=== PATIENT | male | born 1950 | race Caucasian/White ===

== ENCOUNTER 2019-10-24 08:13 | Outpatient (CLI) | payer OTHER, SELFPAY ==
--- NOTE | 2019-10-24 07:45 | XRR_ITS ---
PROCEDURE INFORMATION: Exam: XR Abdomen, 1 View Exam date and time: 10/24/2019 8:33 AM Age: 69 years old Clinical indication: Condition or disease; Kidney or ureter condition; Calculus (stone) in kidney; Prior surgery; Surgery date: 6+ months; Surgery type: Prostate; Kidney stones; Patient HX: Follow up stones 6 months. HX of prostate cancer; Additional info: HX of renal stone TECHNIQUE: Imaging protocol: XR of the abdomen. Views: Frontal supine view of the abdomen. 1 View. COMPARISON: [place] XR KUB [id number] 04/18/2019 7:56 AM FINDINGS: Gastrointestinal tract: Unremarkable. No bowel dilation. Intraperitoneal space: Bilateral pelvic bowel surgical clips consistent with prior prostatectomy redemonstrated. Organs: Small bilateral renal caliceal calculi, somewhat more conspicuous than on the prior study likely due to better radiographic technique Bones/joints: Superior lateral right hip joint mild narrowing with subchondral sclerosis. Bilateral lower lumbar facet primary osteoarthritis. XR/XR KUB [id number] IMPRESSION: Bilateral renal calyceal lithiasis, stable.
== END 2019-10-24 08:14 | disposition home or self-care (01) ==
LOC: RAD 08:18
PROVIDERS: Family Provider Family Medicine; PCP Family Medicine; Visit Provider Urology
DX: Z87.442 Personal history of urinary calculi (principal); N20.0 Calculus of kidney
CPT/HCPCS: 74018; 81001

== ENCOUNTER 2020-10-23 08:02 | Outpatient (CLI) | payer MEDICARE, SELFPAY ==
--- NOTE | 2020-10-23 08:15 | XRR_ITS ---
PROCEDURE INFORMATION: Exam: XR Abdomen Exam date and time: 10/23/2020 8:15 AM Age: 70 years old Clinical indication: Condition or disease; Kidney or ureter condition; Calculus (stone) in kidney; Prior surgery; Surgery type: Lithotripsy, prostate; Additional info: Stones, luis m cardenas 10/23/20 @ 8:15 am appt to follow TECHNIQUE: Imaging protocol: XR of the abdomen. Views: Frontal supine view of the abdomen. 1 View. COMPARISON: [place] XR KUB [id number] 10/24/2019 8:25 AM FINDINGS: Tubes, catheters and devices: Surgical clips are seen projecting over the pelvis. Gastrointestinal tract: Normal. No bowel dilation. Organs: Tiny densities are again seen projecting over the kidney shadows, likely representing non-obstructing stones. Evaluation is limited due to overlying bowel. Bones/joints: Unremarkable. XR/XR KUB [id number] IMPRESSION: Bilateral nonobstructive kidney stones.
== END 2020-10-23 08:03 | disposition home or self-care (01) ==
LOC: RAD 08:06
PROVIDERS: Family Provider Family Medicine; PCP Family Medicine; Visit Provider Urology
DX: N20.0 Calculus of kidney (principal)
CPT/HCPCS: 74018; 81003

== ENCOUNTER → 2020-11-27 09:45 | Outpatient (BNVA) | payer MEDICARE, SELFPAY | PROVIDERS: Family Provider Family Medicine; PCP Family Medicine; Visit Provider Nurse Practitioner Family | DX: Z20.822 Contact with and (suspected) exposure to COVID-19 (principal) | CPT/HCPCS: 87635 ==

== ENCOUNTER → 2021-02-28 09:40 | Outpatient (BNVA) | payer MEDICARE, SELFPAY | PROVIDERS: Family Provider Family Medicine; PCP Family Medicine; Visit Provider Nurse Practitioner Family | DX: Z20.822 Contact with and (suspected) exposure to COVID-19 (principal) | CPT/HCPCS: 87400; 87635 ==

== ENCOUNTER → 2021-04-22 00:01 | Outpatient (BNVA) | payer MEDICARE, SELFPAY | PROVIDERS: Family Provider Family Medicine; PCP Family Medicine; Visit Provider Nurse Practitioner Family | DX: J06.9 Acute upper respiratory infection, unspecified (principal) | CPT/HCPCS: 87635 ==

== ENCOUNTER → 2021-05-10 00:01 | Outpatient (BNVA) | payer MEDICARE, SELFPAY | PROVIDERS: Family Provider Family Medicine; PCP Family Medicine; Visit Provider Nurse Practitioner Family | DX: Z20.822 Contact with and (suspected) exposure to COVID-19 (principal) | CPT/HCPCS: 87635 ==

== ENCOUNTER 2021-05-17 13:17 | Outpatient (CLI) | payer MEDICARE, SELFPAY ==
[2021-05-17 13:35] VITALS: BP 166/83; PULSE 69; RESP 18; TEMP 36.2; O2SAT 95; BMI 36.3
[2021-05-17 14:04] VITALS: BP 143/81; PULSE 63; RESP 16; TEMP 36.6; O2SAT 98
[2021-05-17 15:05] VITALS: BP 151/85; PULSE 64; RESP 18; TEMP 36.6; O2SAT 98
== END 2021-05-17 13:18 | disposition home or self-care (01) ==
LOC: OPS 13:24
PROVIDERS: Family Provider Family Medicine; PCP Family Medicine; Visit Provider Family Medicine
DX: U07.1 COVID-19 (principal)
CPT/HCPCS: 96365

== ENCOUNTER → 2021-09-04 08:56 | Outpatient (BNVA) | payer MEDICARE, SELFPAY | PROVIDERS: Family Provider Family Medicine; PCP Family Medicine; Visit Provider Podiatrist Foot & Ankle Surgery | DX: M20.41 Other hammer toe(s) (acquired), right foot (principal); M20.42 Other hammer toe(s) (acquired), left foot; M21.40 Flat foot [pes planus] (acquired), unspecified foot; M19.072 Primary osteoarthritis, left ankle and foot; M19.071 Primary osteoarthritis, right ankle and foot; L60.8 Other nail disorders; Z98.890 Other specified postprocedural states; Z87.891 Personal history of nicotine dependence | CPT/HCPCS: 73630; 99204 ==

== ENCOUNTER 2021-10-24 08:45 | Outpatient (CLI) | payer MEDICARE, SELFPAY ==
--- NOTE | 2021-10-24 07:30 | XR_ITS ---
WS: [id number] XR KUB [id number] REASON FOR EXAM: Bilateral Renal Stones FINDINGS: There are multiple small bilateral renal calculi which appear unchanged compared to 10/23/2020. No ureteral calculi or bladder calculi are identified. Postsurgical pelvis with bilateral surgical clips. No other significant pelvic or abdominal abnormality. XR/XR KUB [id number] IMPRESSION: Stable intrarenal calculi.
== END 2021-10-24 08:46 | disposition home or self-care (01) ==
LOC: RAD 08:47
PROVIDERS: Family Provider Family Medicine; PCP Family Medicine; Visit Provider Urology
DX: N20.0 Calculus of kidney (principal)
CPT/HCPCS: 74018; 81003; 99213

== ENCOUNTER 2021-12-10 08:46 | Outpatient (CLI) | payer MEDICARE, SELFPAY ==
--- NOTE | 2021-12-10 08:56 | XR_ITS ---
WS: [id number] Exam: XR chest 2V* [id number] Date/Time of Exam: 12/10/2021 8:58 AM Reason For Exam: cough Comparison 05/13/2016. Findings: The lungs are clear and fully expanded. Costophrenic angles are sharp. No infiltrates. Bronchovascula r relief appears normal. Cardiac silhouette is unremarkable. Bony elements are intact. XR/XR chest 2V* [id number] IMPRESSION: Unremarkable chest radiograph.
== END 2021-12-10 08:47 | disposition home or self-care (01) ==
LOC: RAD 08:48
PROVIDERS: Family Provider Family Medicine; PCP Family Medicine; Visit Provider Family Medicine
DX: R05.9 Cough, unspecified (principal)
CPT/HCPCS: 71046

== ENCOUNTER 2022-01-24 08:25 | Outpatient (CLI) | payer MEDICARE, SELFPAY ==
--- NOTE | 2022-01-24 08:30 | CT_ITS ---
WS: [id number] CT PARANASAL SINUSES HISTORY: chronic sinus headaches TECHNIQUE: Contiguous 2.5 mm axial images obtained through the sinuses. Images are reconstructed in s agittal and coronal planes. All CT scans at [facility] use at least one of these dose optimiz ation techniques: automated exposure control; mA and/or kV adjustment per patient size (includes targ eted exams where dose is matched to clinical indication); or iterative reconstruction. DLP: 407.28 mGy.cm COMPARISON: None available. Frontal sinuses: Normal. Sphenoid sinus: Normal. Ethmoid sinuses: Normal. Maxillary sinus: No air-fluid levels or significant mucoperiosteal thickening. Incomplete septum to t he sinuses. No associated obstruction or mucoperiosteal thickening. Ostiomeatal unit: Patent. Very slight deviation of the nasal septum to the RIGHT with very minimal bony spurring. No soft tissu e abnormalities are identified. Visualized orbits and globes are negative. CT/CT sinus wo con* [id number] IMPRESSION: 1. No significant paranasal sinus disease. No air-fluid levels or mucoperioste al thickening. 2. Patent ostiomeatal units.
== END 2022-01-24 08:26 | disposition home or self-care (01) ==
LOC: RAD 08:27
PROVIDERS: PCP Family Medicine; Visit Provider Family Medicine
DX: J32.9 Chronic sinusitis, unspecified (principal)
CPT/HCPCS: 70486; 80053; 80061; 85025

== ENCOUNTER → 2022-12-04 08:44 | Outpatient (BNVA) | payer MEDICARE, SELFPAY | PROVIDERS: PCP Family Medicine; Visit Provider Family Medicine | DX: Z00.00 Encounter for general adult medical examination without abnormal findings (principal); I10 Essential (primary) hypertension | CPT/HCPCS: 80053; 80061; 85025 ==

== ENCOUNTER → 2022-12-16 15:44 | Outpatient (BNVA) | payer MEDICARE, SELFPAY | PROVIDERS: PCP Family Medicine; Visit Provider Dermatology | DX: L30.9 Dermatitis, unspecified (principal); L82.1 Other seborrheic keratosis; L57.0 Actinic keratosis; D23.72 Other benign neoplasm of skin of left lower limb, including hip; I87.2 Venous insufficiency (chronic) (peripheral) | CPT/HCPCS: 17000; 17003; 99214 ==

== ENCOUNTER 2023-03-13 07:20 | Outpatient (RCR) | payer MEDICARE, SELFPAY | END 2023-03-26 23:59 | disposition home or self-care (01) | LOC: SPT 07:20 | PROVIDERS: PCP Family Medicine; Visit Provider Orthopaedic Surgery | DX: M17.11 Unilateral primary osteoarthritis, right knee (principal) | CPT/HCPCS: 97110; 97116; 97161 ==

== ENCOUNTER 2023-03-27 06:00 | Outpatient (RCR) | payer MEDICARE, SELFPAY | END 2023-04-26 23:59 | disposition home or self-care (01) | LOC: SPT 06:00 | PROVIDERS: PCP Family Medicine; Visit Provider Orthopaedic Surgery | DX: M17.11 Unilateral primary osteoarthritis, right knee (principal) | CPT/HCPCS: 97110; 97530 ==

== ENCOUNTER 2023-04-27 06:00 | Outpatient (RCR) | payer MEDICARE, SELFPAY | END 2023-05-14 23:59 | disposition home or self-care (01) | LOC: SPT 06:00 | PROVIDERS: PCP Family Medicine; Visit Provider Orthopaedic Surgery | DX: M17.11 Unilateral primary osteoarthritis, right knee (principal) | CPT/HCPCS: 97110; 97530 ==

== ENCOUNTER → 2023-11-02 14:05 | Outpatient (BNVA) | payer MEDICARE, SELFPAY | PROVIDERS: PCP Family Medicine; Visit Provider Family Medicine | DX: I47.20 Ventricular tachycardia, unspecified (principal) | CPT/HCPCS: 80048; 85025 ==

== ENCOUNTER → 2024-01-13 08:22 | Outpatient (BNVA) | payer MEDICARE, SELFPAY | PROVIDERS: PCP Family Medicine; Visit Provider Nurse Practitioner Family | DX: D48.5 Neoplasm of uncertain behavior of skin (principal); L57.0 Actinic keratosis; L30.4 Erythema intertrigo; L30.9 Dermatitis, unspecified; B07.8 Other viral warts; L82.1 Other seborrheic keratosis; D23.72 Other benign neoplasm of skin of left lower limb, including hip; I87.2 Venous insufficiency (chronic) (peripheral); L73.8 Other specified follicular disorders; D69.2 Other nonthrombocytopenic purpura | CPT/HCPCS: 11102; 17000; 17110; 99214 ==

== ENCOUNTER → 2024-01-27 09:25 | Outpatient (BNVA) | payer MEDICARE, SELFPAY | PROVIDERS: PCP Family Medicine; Visit Provider Family Medicine | DX: I10 Essential (primary) hypertension (principal) | CPT/HCPCS: 80048 ==

== ENCOUNTER → 2024-04-28 10:06 | Outpatient (BNVA) | payer MEDICARE, SELFPAY | PROVIDERS: PCP Family Medicine; Visit Provider Nurse Practitioner Family | DX: L30.4 Erythema intertrigo (principal); L72.0 Epidermal cyst; L82.1 Other seborrheic keratosis; L81.4 Other melanin hyperpigmentation; Z08 Encounter for follow-up examination after completed treatment for malignant neoplasm | CPT/HCPCS: 99213 ==

== ENCOUNTER 2024-06-27 08:16 | Outpatient (RCR) | payer MEDICARE, SELFPAY | END 2024-07-25 23:59 | disposition home or self-care (01) | LOC: SPT 08:16 | PROVIDERS: Visit Provider Orthopaedic Surgery | DX: M17.12 Unilateral primary osteoarthritis, left knee (principal) | CPT/HCPCS: 97110; 97161 ==

== ENCOUNTER 2024-07-26 05:00 | Outpatient (RCR) | payer MEDICARE, SELFPAY | END 2024-08-24 23:59 | disposition home or self-care (01) | LOC: SPT 05:00 | PROVIDERS: Visit Provider Orthopaedic Surgery | DX: M17.12 Unilateral primary osteoarthritis, left knee (principal) | CPT/HCPCS: 97110 ==

== ENCOUNTER → 2024-08-15 15:34 | Outpatient (BNVA) | payer MEDICARE, SELFPAY | PROVIDERS: Visit Provider Nurse Practitioner Family | DX: L30.4 Erythema intertrigo (principal); L72.0 Epidermal cyst; L82.1 Other seborrheic keratosis; L81.4 Other melanin hyperpigmentation; Z08 Encounter for follow-up examination after completed treatment for malignant neoplasm; Z86.006 Personal history of melanoma in-situ; D48.5 Neoplasm of uncertain behavior of skin | CPT/HCPCS: 11102; 99213 ==

== ENCOUNTER 2024-08-25 06:30 | Outpatient (RCR) | payer MEDICARE, SELFPAY | END 2024-09-24 23:59 | disposition home or self-care (01) | LOC: SPT 06:30 | PROVIDERS: PCP Family Medicine; Visit Provider Orthopaedic Surgery | DX: M17.12 Unilateral primary osteoarthritis, left knee (principal) | CPT/HCPCS: 97110 ==

== ENCOUNTER → 2024-08-29 09:49 | Outpatient (BNVA) | payer MEDICARE, SELFPAY | PROVIDERS: PCP Family Medicine; Visit Provider Family Medicine | DX: J32.9 Chronic sinusitis, unspecified (principal); N20.0 Calculus of kidney; N18.9 Chronic kidney disease, unspecified | CPT/HCPCS: 80048; 85025 ==

== ENCOUNTER → 2024-09-26 09:51 | Outpatient (BNVA) | payer MEDICARE, SELFPAY | PROVIDERS: PCP Family Medicine; Visit Provider Family Medicine | DX: I10 Essential (primary) hypertension (principal); R60.9 Edema, unspecified | CPT/HCPCS: 80048; 83880 ==

== ENCOUNTER 2024-12-13 08:31 | Emergency (ER) | payer MEDICARE, SELFPAY ==
--- OUTSIDE RECORDS SUMMARY | 2024-12-09 10:25 | XMS_ITS | Encounter Summary ---
Author Organization [facility] Address [address] [place] [address] Care Team Providers Care Comber Fixer Name Role Phone Unavailable Primary Care Provider Unavailabl e Encounter Details Date Type Department Care Team (Latest Contact Info) Description 12/09/2024 10:25 AM CDT Ancillary Procedure [facility] [address] [place] [address] Choco Negro DO [address] [place] [address] Arthritis of right ankle Social History Tobacco Use Types Packs/Day Years Used Date Smoking Tobacco: Former Cigarettes 0.5 20 1 983 - 2002 Smokeless Tobacco: Never Comments:Quit smoking: Quit smoking in 1995 Alcohol Use Standard Drinks/Week Comments Yes 0 (1 standard drink = 0.6 oz pur e alcohol) rarely Sex and Gender Information Value Date Recorded Sex Assigned at Not on file Legal Sex Male 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 Gender Identity Not on file Sexual Orientation Not on file documented as of this encounter Plan of Treatment Upcoming Encounters Date Type Department Care Team (Late st Contact Info) Description 12/19/2024 2:00 PM CDT Procedure visit [facility] [address] [place] [address] Choco Negro DO [address] [place] [address] 02/08/2025 10:00 AM CDT Chart Note [facility] Former Machine 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 [facility] [phone] [place] [phone] 02/08/2025 10:30 AM CDT Office Visit [facility] [address] [place] [address] Rodríguez Piersonrasheed Ayesha Leo, OD [address] [place] [address] 06/21/2025 10:00 AM HOGSHEAD PACKER Office Visit [facility] - Orthopedic [facility] [address] [place] [address] Sonal Fontana, BOAT GARNISHER [address] [place] [address] documented as of this encounter Procedures Procedure Name Priority Date/Time Associated Diagnosis Comments XR ANKLE 3+ VW RIGHT Routine 12/09/2024 10:27 AM CDT Arthritis of right ankle documented in this encounter Results * XR ANKLE 3+ VW RIGHT (12/09/2024 10:27 AM CDT) Anatomical Region Laterality Modality Ankle / Foot Computed Radiogr aphy Narrative 12/12/2024 1:43 PM CDT X-ray images of the right ankle obtained and independently interpreted by me significant for severe degenerative changes about the tibiotalar joint osteopenia is present diffusely, subchondral cystic changes noted throughout the talus as well as the distal tibia, prominent soft tissue swelling, no acute fractures. us Choco Negro DO DIAGNOSTIC IMAGING ORD ERABLES Final Result documented in this encounter Visit Diagnoses Diagnosis Arthritis of right ankle Unspecified arthropathy, ankle and foot Arthritis of right ankle- Primary Unspecified arthropathy, ankle and foot documented in this encounter
--- OUTSIDE RECORDS SUMMARY | 2024-12-09 10:30 | XMS_ITS | Encounter Summary ---
Author Organization [facility] Address [address] [place] [address] Care Team Providers Care Acid Polymerization Operator Name Role Phone Unavailable Primary Care Provider Unavailabl e Reason for Referral * Eval and Treat (Routine) - Open Specialty Diagnoses / Procedures Referred By Ese jackman Referred To Contact Physical Therapy Diagnoses Lymphedema of both lower extremities Lymphedema of lower extremity, unspecified laterality Procedures MA OFFICE/OUTPATIENT ESTABLISHED MOD MDM 30 MIN MA OFFICE/OUTPATIENT NEW MODERATE MDM 45 MINUTES Choco Negro DO [address] [place] [address] Phone: tel: fax: [facility] [address] [place] [address] Phone: tel: fax: Referral ID Status Reason Start Date Expiration Date Visits Re quested Visits Authorized [id number] Open 12/09/2024 12/10/2025 15 15 Reason for Visit * Reason Comments Establish Care Rt ankle * Eval and Treat (Routine) - Closed Specialty Diagnoses / Procedures Referred By Ese jackman Referred To Contact Orthopedic Surgery Diagnoses Arthritis of right ankle Procedures MA OFFICE/OUTPATIENT ESTABLISHED MOD MDM 30 MIN MA OFFICE/OUTPATIENT NEW MODERATE MDM 45 MINUTES Sonal Fontana, IRRIGATION EQUIPMENT REMOVER [address] [place] [address] Phone: tel: fax: Grzegorz Whatley MD [address] [place] [address] Phone: tel: fax: Referral ID Status Reason Start Date Expiration Date Visits Re quested Visits Authorized [id number] Closed 11/15/2024 11/15/2025 1 1 Encounter Details Date Type Department Care Team (Late st Contact Info) Description 12/09/2024 10:30 AM CDT Office Visit [facility] Orthopedics - Orthopedic [address] [place] [address] Choco Negro DO 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 Gender Identity Not on file Sexual Orientation Not on file documented as of this encounter Last Filed Vital Signs Vital Sign Reading Time Taken Comments Blood Pressure 124/78 12/09/2024 10:33 AM CDT Pulse - - Temperature - - Respiratory Rate - - Oxygen Saturation - - Inhaled Oxygen Concentration - - Weight 121.1 kg (267 lb) 12/09/2024 10:33 AM CDT Height 182.9 cm (6') 12/09/2024 10:33 AM CDT Body Mass Index 36.21 12/09/2024 10:33 AM CDT documented in this encounter Progress Notes * Choco Negro, - 12/09/2024 10:33 AM CDT [address] [address] PATIENT NAME: Jose Angel Ceja CSN: [id number] : 1950 PROVIDER: Choco Negro DO PCP: No primary care provider on file. I have reviewed in detail in the patient's electronic medical record this date the past medical history, present medications, allergies, past surgical history, family history and social history. CHIEF COMPLAINT: Right ankle pain HISTORY PRESENT ILLNESS: Jose Angel Ceja is a 74 y.o. male who presents with a chief complaint of right ankle pain. He states the symptoms have been worsening over the past several years. He has had pain for roughly 10 years on relatively frequent basis. He does have a remote history of right ankle fracture which was treated nonsurgically. Has a history of bilateral TKA and states that his knees were present. He states that his symptoms do wax and wane in intensity and severity. He has been on Tylenol as well as topicals for symptoms. He has a significant cardiac history with paroxysmal A-fib, HFpEF, PND, and has recently had increased shortness of breath. Social History Tobacco Use Smoking Status Former Current packs/day: 0.00 Average packs/day: 0.5 packs/day for 20.0 years (10.0 ttl pk-yrs) Types: Cigarettes Start date: 1982 Quit date: 2002 Years since quittin.6 Smokeless Tobacco Never Tobacco Comments Quit smoking: Quit smoking in 1995 Body mass index is 36.21 kg/m??. No results found for: HGBA1C , [id number] ROS: Negative except as stated above. PHYSICAL EXAMINATION: Height: Ht Readings from Last 1 Encounters: 12/09/24 6' (1.829 m) Weight: Weight: 121.1 kg (267 lb) (12/09/24 1033) BMI: Body mass index is 36.21 kg/m??. GENERAL: Well nourished, well developed male no acute distress. PSYCH: appropriate mood and affect. SKIN: Skin color, texture, turgor normal. No rashes or lesions CARDIOVASCULAR: Pulses: strong and equal bilaterally; Circulation: warm, well perfused. NEURO: CN2-12 grossly intact bilaterally MUSCULOSKELETAL EXAM: Exam limited to right ankle: Inspection: Moderate swelling of the bilateral lower extremity with intact skin, 2+ pitting to the midshin bilaterally. No erythema or other ecchymosis noted. Range of Motion: Active Plantar flexion 30 degrees, dorsiflexion to 5 degrees, inversion 15 degrees, eversion to 5 degrees Palpation: Mild tenderness to palpation over the tibiotalar joint, no significant tenderness overlying the ATFL, CFL, Achilles tendon, peroneal tendons Strength: Plantar flexion 4/5, dorsiflexion 4/5, inversion 4/5, eversion 4/5 Special Testing: Anterior drawer positive, talar tilt equivocal, squeeze test negative Neurovascular: Neurovascularly intact RADIOGRAPHIC FINDINGS: X-ray images of the right ankle obtained at independently interpreted by me significant for severe degenerative changes about the tibiotalar joint osteopenia is present diffusely, subchondral cystic changes noted throughout the talus as well as the distal tibia, prominent soft tissue swelling, no acute fractures. ASSESSMENT: Encounter Diagnoses Name Primary? Arthritis of right ankle Yes Lymphedema of both lower extremities Lymphedema of lower extremity, unspecified laterality PLAN: Severe osteoarthritis of the right ankle, suspected the patient had previously undiagnosed bimalleolar fracture at some point. We did discuss starting with injection therapy under ultrasound guidance, given the patient's profound lymphedema referral was placed lymphedema clinic. Given patient's cardiac history recommend patient to avoid all NSAIDs, topicals may be used. Patient was outfitted witha lace up ankle brace today. May consider specialty bracing if prefab braces are inadequate. The patient voices understanding, all questions were answered prior to leaving the clinic today. Orders Placed This Encounter XR ANKLE 3+ VW RIGHT Referral to Lymphedema Clinic - [facility] Outpatient [facility] empagliflozin (JARDIANCE) 10 mg tablet bumetanide (BUMEX) 1 mg tablet Contact clinic if symptoms worsen or fail to improve as expected. See orders for this visit as documented in the electronic medical record. This progress note is meant as a communication from physician to physician, and there may be unfamiliar terminology if you are a patient reading this note. If you find that is the case or you disagree with anything in this note, kindly wait until your next appointment to discuss with me. However, understand that changes to the note will only be made if information is factually an error. Also, clinical information cannot be removed from the medical records in order to withhold information from insurance companies. Please understand that I am not at liberty to discuss progress notes written by other providers. Portions of this document were created through the use of [employer] automation design engineer software. Effort has been made to ensure accuracy of the sustainability officer. Any obvious errors or omissions should be clarified with the author of the document. The medical record reflects the History of Present Illness as obtained by myself in discussion withthe patient. Choco Negro DO documented in this encounter Miscellaneous Notes * Patient Instructions - Choco Negro DO - 11/25/2024 2:28 PM CDT Images from the original note were not included. It was a pleasure seeing you in the clinic today. If you have any questions when you get home do not hesitate to call us at the numbers below. If you feel the need to call us and we are unable to answer the phone, please leave a voicemail with your name, and phone number and we will call you back as soon as possible. IF we have placed a referral for you during this visit, please allow 5 business days for your referrals to pass through insurance and processing. If you have questions about your referral please contact the respective numbers below to follow up on the next steps. [facility] Central - Test Scheduling(MRI, CT, etc.) [facility] Referral Team-(PT, OT, etc.) [facility] Neurology- (EMG) [facility] Pain Management(Spine) [facility] Financial Assistance [phone] Again, it was a pleasure visiting with you today. We look forward to seeing you again in the future. Best regards, DO Kumar Irving PA Libby Bales, MA [facility] Orthopedics [phone] Sports Medicine [place] Ankle Sprain: Rehab Exercises Introduction Here are some examples of exercises for you to try. The exercises may be suggested for a condition or for rehabilitation. Start each exercise slowly. Ease off the exercises if you start to have pain. You will be told when to start these exercises and which ones will work best for you. How to do the exercises Ankle alphabet Sit in a chair with your feet flat on the floor. (You can also do this exercise lying on your back with your affected leg propped up on a pillow). Lift the heel of your affected foot off the floor, and slowly trace the letters of the alphabet. It's a good idea to repeat these steps with your other foot. Resisted ankle inversion Sit on the floor with your good leg crossed over your other leg. Hold both ends of an exercise band and loop the band around the inside of your affected foot. Then press your other foot against the band. Keeping your legs crossed, slowly push your affected foot against the band so that foot moves away from your other foot. Then slowly relax. Repeat 8 to 12 times. Resisted ankle eversion Sit on the floor with your legs straight. Hold both ends of an exercise band and loop the band around the outside of your affected foot. Thenpress your other foot against the band. Keeping your leg straight, slowly push your affected foot outward against the band and away from your other foot without letting your leg rotate. Then slowly relax. Repeat 8 to 12 times. Resisted ankle dorsiflexion Tie the ends of an exercise band together to form a loop. Attach one end of the loop to a secure object or shut a door on it to hold it in place. (Or you can have someone hold one end of the loop to provide resistance.) While sitting on the floor or in a chair, loop the other end of the band over the top of your affected foot. Keeping your knee and leg straight, slowly flex your foot to pull back on the exercise band, and then slowly relax. Repeat 8 to 12 times. documented in this encounter Plan of Treatment Upcoming Encounters Date Type Department Care Team (Late st Contact Info) Description 12/19/2024 2:00 PM CDT Procedure visit [facility] Orthopedics - Orthopedic [facility] [address] [place] [address] Choco Negro DO [address] [place] [phone] 02/08/2025 10:00 AM CDT Chart Note [facility] Web Services Developer Optometry [facility] [address] [place] [phone] 02/08/2025 10:30 AM CDT Office Visit [facility] Optometry [facility] [address] [place] [address] Ayesha Reyez, OD [address] [place] [address] 06/21/2025 10:00 AM COUNTERINTELLIGENCE ANALYST Office Visit [facility] Orthopedics - Orthopedic [facility] [address] [address] Sonal Fontana, IRRIGATION EQUIPMENT REMOVER [address] [phone] Scheduled Referrals Name Type Priority Associated Diagnoses Orde r Schedule AMB REFERRAL TO LYMPHEDEMA CLINIC Outpatient Referral Routine Lymphedema of both lower extremities Lymphedema of lower extremity, unspecified laterality Ordered: 12/09/2024 documented as of this encounter Results * XR ANKLE 3+ [...] encounter Visit Diagnoses Diagnosis Arthritis of right ankle- Primary Unspecified arthropathy, ankle and foot Lymphedema of both lower extremities Lymphedema of lower extremity, unspecified laterality Arthritis of right ankle Unspecified arthropathy, ankle and foot Arthritis of right ankle- Primary Unspecified arthropathy, ankle and foot documented in this encounter
[2024-12-13] VITALS (13 sets, daily range): BP systolic 120–150; BP diastolic 66–80; PULSE 54–180; RESP 14–21; TEMP 36.7; O2SAT 92–98
--- OUTSIDE RECORDS SUMMARY | 2024-12-13 08:37 | XMS_ITS | Clinical Summary ---
Author Organization [facility] Address [address] [facility] [place] [address] Care Team Providers Care Archery Instructor Name Role Phone Unavailable Primary Care Provider Unavailabl e Allergies Active Allergy Reactions Criticality Noted Date Comments Williams Inhibitors Cough Low 11/12/2010 Codeine Phosphate Headache Low 11/12/2010 Medications amLODIPine (NORVASC) 10 mg Oral tablet Take 10 mg by mouth daily. Active potassium chloride SR (K-DUR) 20 mEq Oral tablet Take 20 mEq by mouth daily. Active losartan (COZAAR) 100 mg Oral tablet Take 100 mg by mouth daily. Active magnesium oxide (MAG-OX) 400 mg Oral tablet Take 400 mg by mouth 2 times daily. Active multivitamin (DAILY-DOROTA) Oral tablet Take 1 Tab by mouth daily. Active GLUCOSAM & CHONDROIT-MV & MIN3 (GLUCOSAMINE &YUNGTETYN-WI-ZQ N3 ORAL) Take by mouth daily. Active cetirizine (ZYRTEC) 10 mg Oral tablet Take 10 mg by mouth daily. Active metoprolol succinate ER 24 hour (TOPROL-XL) 25 mg Oral tablet Take 1 Tab by mouth daily. 90 Tab 3 08/05/2011 Active furosemide (LASIX) 40 mg tablet Take 40 mg by mouth daily. Active aspirin (ECOTRIN EC) 81 mg Tablet, Delayed Release (E.C.) Take 81 mg by mouth daily. Active Active Problems Problem Noted Date Diagnosed Date A-fib 11/14/2010 HTN (hypertension) 11/14/2010 Sleep apnea 11/14/2010 Immunizations Immunization Administration Dates Next Due (TDVAX)(7 YRS UP) TETANUS AN D DIPHTHERIA TOXOIDS, ADSORBED (2 LF OF TETANUS TOXOID AND 2 LF OF DIPHTHERIA TOXOID), 0.5ML (PF), IM 01/12/2007 Social History Tobacco Use Types Packs/Day Years Used Date Smoking Tobacco: Former Cigarettes Smokeless Tobacco: Never Comments:Quit smoking in 199 6 Alcohol Use Standard Drinks/Week Comments Not Asked 0 (1 standard drink = 0.6 oz pur e alcohol) Sex and Gender Information Value Date Recorded Sex Assigned at Not on file Legal Sex Male 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 Gender Identity Not on file Sexual Orientation Not on file Last Filed Vital Signs Vital Sign Reading Time Taken Comments Blood Pressure 164/94 01/19/2019 10:43 AM CDT Pulse 67 01/19/2019 10:43 AM CDT Temperature - - Respiratory Rate - - Oxygen Saturation - - Inhaled Oxygen Concentration - - Weight 127 kg (280 lb) 01/19/2019 10:43 AM CDT Height 185.4 cm (6' 1 ) 01/19/2019 10:43 AM CDT Body Mass Index 36.94 01/19/2019 10:43 AM CDT Plan of Treatment Health Maintenance Due Date Last Done Comments COLORECTAL SCREENING 1996 Colorectal Cancer Screening 1996 FIT-DNA Q 3 years 1996 FIT/FOBT Q 1 year 1996 Flex Sig/CT Colonography Q 5 years 1996 PNEUMOCOCCAL VACCINE 50+ YEARS (1 of 1 - PCV) 05/17/19 02 ZOSTER VACCINE (1 of 2) 2001 DTAP/TDAP/TD VACCINES (1 - Tdap) 01/13/2007 01/13/20 07 INFLUENZA VACCINE (#1) 2024 RSV VACCINE (60+ or ) (1 - 1-dose 75+ series) [address] [place] [id number]
--- OUTSIDE RECORDS SUMMARY | 2024-12-13 08:37 | XMS_ITS | Encounter Summary ---
Author Organization [facility] Address [address] [place] [address] Care Team Providers Care Cable Television Technician Name Role Phone Unavailable Primary Care Provider Unavailabl e Encounter Details Date Type Department Care Team (Latest Contact Info) Description 09/07/[address] 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
--- OUTSIDE RECORDS SUMMARY | 2024-12-13 08:37 | XMS_ITS | Encounter Summary ---
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
--- OUTSIDE RECORDS SUMMARY | 2024-12-13 08:37 | XMS_ITS | Encounter Summary ---
Author Organization [facility] Address [address] [place] [address] Care Team Providers Care Medical Office Scheduler Name Role Phone Unavailable Primary Care Provider Unavailabl e Reason for Visit * Reason Onset Date Comments Question 11/18/2024 Encounter Details Date Type Department Care Team (Late st Contact Info) Description 11/18/2024 Telephone [facility] Orthopedics - Orthopedic [facility] [address] [place] [address] Grzegorz Whatley MD [address] [place] [phone] Question Social History Tobacco Use Types Packs/Day Years Used Date Smoking Tobacco: Former Cigarettes 0.5 20 1 983 - 2002 Smokeless Tobacco: Never Comments:Quit smoking: Quit smoking in 1995 Alcohol Use Standard Drinks/Week Comments Yes 0 (1 standard drink = 0.6 oz pur e alcohol) rarely Sex and Gender Information Value Date Recorded Sex Assigned at Not on file 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 Thank you! * Telephone Encounter - Charlene Cramer - 11/18/2024 10:20 AM CDT Doctor: Dr Whatley Phone #: [phone] Person Calling: Relationship to patient: Reason for call: Internal referral from Sonal Fontana. Patient stated that his RT ankle gets reallystiff when he stands for a long period of time. RT ankle does become less stiff after he walks for a little bit. Patient has flat feet and he wears inserts in both of shoes No previous injections and no previous surgeries Possibly has some splaying between his toes on his RT foot Patient has seen other podiatrists in the past as well. Patient has had both knee replaced with Dr Walsh's team Please advise. documented in this encounter Plan of Treatment Upcoming Encounters Date Type Department Care Team (Late st Contact Info) Description 12/19/2024 2:00 PM CDT Procedure visit [facility] [address] [place] [phone] Choco Negro, [address] [place] [address] 02/08/2025 10:00 AM CDT Chart Note [facility] Assistant Optometry [facility] [address] [place] [address] 02/08/2025 10:30 AM CDT Office Visit [facility] Opt[facility] Jamie [address] [place] [address] Ayesha Reyez, OD [address] [place] [address] 06/21/2025 10:00 AM MACHINERY MECHANIC Office Visit [facility] [address] [place] [address] Sonal Fontana, JESSE [address] [place] [phone] documented as of this encounter Visit Diagnoses Not on filedocumented in this encounter
--- OUTSIDE RECORDS SUMMARY | 2024-12-13 08:37 | XMS_ITS | Encounter Summary ---
Author Organization [facility] Address [address] [place] [address] Care Team Providers Care Recreation Therapy Aides Teacher Name Role Phone Unavailable Primary Care Provider Unavailabl e Encounter Details Date Type Department Care Team (Latest Contact Info) Description 03/26/2005 Outpatient Historical [facility] Family Medicine [address] [phone] Justice Coburn DO NO ADDRESS ON FILE Routine medical exam (Primary Dx) Social History Tobacco Use Types Packs/Day Years Used Date Smoking Tobacco: Never Assessed Sex and Gender Information Value Date Recorded Sex Assigned at Not on file 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
--- OUTSIDE RECORDS SUMMARY | 2024-12-13 08:37 | XMS_ITS | Clinical Summary ---
Author Organization [facility] Address [address]: [place] [address] Care Team Providers Care Elastic Yarn Twister Name Role Phone Unavailable Primary Care Provider Unavailabl e Allergies Active Allergy Reactions Criticality Noted Date Comments Williams Inhibitors Cough Low 11/12/2010 Codeine Phosphate Headache Low 11/12/2010 Medications furosemide (LASIX) 40 mg tablet Take 40 mg by mouth daily. 9 Active amLODIPine (NORVASC) 10 mg tablet Take 10 mg by mouth daily. Active cetirizine (ZyrTEC) 10 mg tablet Take 10 mg by mouth daily. Active dicyclomine (BENTYL) 10 mg capsule TAKE 1 CAPSULE BY MOUTH 4 TIMES A DAY NEEDED FOR CRAMPING OR DIARRHEA 1 Active loratadine (CLARITIN) 10 mg tablet Take 10 mg by mouth daily. Active losartan (COZAAR) 100 mg tablet Take 100 mg by mouth daily. Active magnesium oxide 400 mg magnesium Capsule Take by mouth daily. Active metoprolol succinate (TOPROL XL) 25 mg Extended Release 24 hour tablet Take 25 mg by mouth daily. Active multivitamin (DAILY-DOROTA) tablet Take 1 Tablet by mouth daily. Active potassium chloride (KLOR-CON) 20 mEq Extended Release tablet Take 20 mEq by mouth daily. Active turmeric root extract 500 mg Capsule Take by mouth. Activ e glucosamine/erick dr taylor casas (Glucosamine-Cho ndroitin) 1,500-1,200 mg/30 mL Liquid Take by mouth 2 times daily. Active spironolactone (ALDACTONE) 25 mg tablet Take 25 mg by mouth daily. 4 Active fluticasone propionate (FLONASE) 50 mcg/spray [place], Suspension nasal inhaler Administer 1 [place] in each nostril. Active ketoconazole (NIZORAL) 2 % Cream 5 Active nystatin (NYSTOP) 100,000 unit/gram powder Apply 1 Application to affected area 2 times daily. 4 Active acetaminophen (TYLENOL ARTHRITIS) 650 mg Extended Release tablet Take 650 mg by mouth every 12 hours as needed for Pain. Active cholecalciferol 1,250 mcg (50,000 unit) Capsule Take 1 Capsule (50,000 Units) by mouth every 7 days. 8 Capsule 06/24/2024 8:49 AM MUSIC PRODUCER 5 Active oxyCODONE (ROXICODONE) 5 mg tabletIndication s:Status post total left knee replacement Take 1 Tablet (5 mg) by mouth every 4 hours as needed for Pain. Max Daily Amount: 30 mg 42 Tablet 06/24/2024 8:49 AM MUSIC PRODUCER 5 Active traMADoL (ULTRAM) 50 mg tabletIndication s:Status post total left knee replacement Take 1 Tablet (50 mg) by mouth every 6 hours as needed for Pain. 28 Tablet 06/24/2024 8:49 AM MUSIC PRODUCER 5 Active docusate sodium (Colace) 100 mg capsule Take 1 Capsule (100 mg) by mouth 2 times daily. 60 Capsule 06/24/2024 8:49 AM MUSIC PRODUCER 5 Active naloxone (NARCAN) 4 mg/spray [place], Non-Aerosol EMERGENCY USE ONLY: Administer 1 spray (4 mg) in one nostril one time. May repeat in alternating nostrils every 2-3 min until responsive or EMS arrives. 2 Each 3 5 Active tiZANidine (ZANAFLEX) 4 mg Tablet Take 1 Tablet (4 mg) by mouth every 6 hours as needed for Spasm. 30 Tablet 5 Active empagliflozin (JARDIANCE) 10 mg tablet Take 10 mg by mouth daily. 5 Active bumetanide (BUMEX) 1 mg tablet Take 1 mg by mouth daily. 5 Active Active Problems Problem Noted Date Diagnosed Date History of ventricular tachycardia 06/10/2024 Overview (06/10/2024): Ablation 10/23/2023 Status post total left knee replacement - 025 06/10/2024 Elevated serum creatinine 06/10/2024 Status post total right knee replacement - 03/1002/18/2023 Preoperative general physical examination 2022 Severe obesity (BMI 35.0-39.9) with comorbidity 02/18/2023 History of prostate cancer 02/18/2023 History of tobacco use 02/18/2023 Allergic rhinitis 02/18/2023 History of atrial fibrillation 02/18/2023 Overview (06/10/2024): Ablation 2013 Muscle spasm 02/18/2023 Bilateral ocular hypertension 02/09/2023 Assessment & Plan (02/09/2024 1:14 PM CDT): Longstanding monitoring for bilateral ocular hypertension through patient's life. Patient never had CCT obtained, however, until last visit. Patient has significantly thick corneas, and we discussed how this can account for the appearance of higher than normal pressures. He states his understanding of this. OCT Nerve is normal, adjusted IOP is normal range and there is no changes to patient's appearance to his nerve. Low risk of any glaucoma changes. Will keep monitoring for changes, however, at patient's annual exam. Will need repeat OCT Nerve, pachs and IOP at next years visit. Assessment & Plan (02/09/2023 5:08 PM CDT): Bilateral ocular hypertension has been present per patient history and is longstanding. As far as patient can remember he has never had the thickness of his corneas taken. Patient does exhibit quite thick corneas in the mid to upper 600s. This would reason for a IOP measurement -8 points. Which then renders his IOP in normal range. We will continue to monitor with the use of the OCT nerve as well, but as of this point there is no signs of any glaucomatous damage. Patient states his understanding of this continue to monitor yearly with OCT nerve and continued IOP pressure but will not start treatment at this time. Combined form of senile cataract of both eyes Assessment & Plan (02/09/2024 1:15 PM CDT): --not visually significant. Overall changes in the quality of vision due to the presence of cataracts is discussed. STILL NO INCREASE IN GLARE NOTED FROM PATIENT SINCE LAST VISIT. --patient does not complain of subjective symptoms at this time and BAT glare testing is not indicative of cataract progression at this time, but could change at any time as this is a fluid situation. Patient states their understanding to contact office if they feel this has changed prior to their next yearly appointment.. --continue to monitor yearly until such time that surgical intervention is warranted. Assessment & Plan (02/09/2023 5:07 PM CDT): --not visually significant. Overall changes in the quality of vision due to the presence of cataracts is discussed. --patient does not complain of subjective symptoms at this time and BAT glare testing is not indicative of cataract progression at this time, but could change at any time as this is a fluid situation. Patient states their understanding to contact office if they feel this has changed prior to their next yearly appointment.. --continue to monitor yearly until such time that surgical intervention is warranted. 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 Pigmented and no new areas are noted. 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 Lesions are all around the nerves in both eyes but not present close to the macula. There is no pigmentation. Continue to monitor yearly. Assessment & Plan (02/09/2023 5:06 PM CDT): Punched out lesions are present in both eyes. 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 Lesions are all around the nerves in both eyes but not present close to the macula. There is no pigmentation. Continue to monitor yearly. Hyperopia of both eyes with astigmatism and pres byopia 02/09/2023 Assessment & Plan (02/09/2024 1:16 PM CDT): New glasses Rx is given at this visit. Minimal changes noted at this time. Patient may continue with current glasses as well. Adaptation is discussed. Monitor yearly or sooner if patient notices changes prior. Assessment & Plan (02/09/2023 5:07 PM CDT): New glasses prescription is given at this time patient is made to be 20/20 again. We discussed that due to the presence of the cataracts the quality of the vision may tend to decrease at this time. We discussed that there does come a time where the glasses will not be able to overcome the decrease in the vision made by the cataracts. Obstructive sleep apnea 11/14/2010 HTN (hypertension) 11/14/2010 Encounters Date Type Department Care Team Description 12/09/2024 10:30 AM CDT Office Visit [place] [address] [facility] [place] [address] Choco Negro DO Arthritis of right ankle (Primary Dx); Lymphedema of both lower extremities; Lymphedema of lower extremity, unspecified laterality 12/09/2024 10:25 AM CDT Ancillary Procedure [place] [address] [facility] [place] [address] Chooc Negro, Arthritis of right ankle 11/18/2024 Telephone [place] [address] [facility] [place] [address] Grzegorz Whatley MD Question 11/15/2024 Orders Only [place] [address] [facility] [place] [address] Sonal Fontana, JESSE Arthritis of right ankle (Primary Dx) 10/11/2024 External Device Data STL ABSTRACTION Provider, Abstract 09/15/2024 External Device Data STL ABSTRACTION Provider, Abstract 09/15/2024 External Device Data STL ABSTRACTION Provider, Abstract 09/14/2024 External Device Data STL ABSTRACTION Provider, Abstract 09/13/2024 External Device Data STL ABSTRACTION Provider, Abstract from Last 3 Months Immunizations Immunization Administration Dates Next Due (TDVAX)(7 YRS UP) TETANUS AN D DIPHTHERIA TOXOIDS, ADSORBED (2 LF OF TETANUS TOXOID AND 2 LF OF DIPHTHERIA TOXOID), 0.5ML (PF), IM 01/12/2007 Family History Medical History Relation Name Comments Heart Disease Brother 1 Under 60 had M I Stroke Father Relation Name Status Comments Brother 1 Brother 2 Father Mother Son 1 Son 2 Alive Social History Tobacco Use Types Packs/Day Years Used Date Smoking Tobacco: Former Cigarettes 0.5 20 1 983 - 2002 Smokeless Tobacco: Never Comments:Quit smoking: Quit smoking in 1995 Alcohol Use Standard Drinks/Week Comments Yes 0 (1 standard drink = 0.6 oz pur e alcohol) rarely Sex and Gender Information Value Date Recorded Sex Assigned at Not on file 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 Gender Identity Not on file Sexual Orientation Not on file Last Filed Vital Signs Vital Sign Reading Time Taken Comments Blood Pressure 124/78 12/09/2024 10:33 AM CDT Pulse 60 06/24/2024 8:21 AM MUSIC PRODUCER Temperature 36.6 C (97.8 F) 06/24/2024 8:21 AM MUSIC PRODUCER Respiratory Rate 16 06/24/2024 8:21 AM MUSIC PRODUCER Oxygen Saturation 99% 06/24/2024 8:21 AM MUSIC PRODUCER Inhaled Oxygen Concentration - - Weight 121.1 kg (267 lb) 12/09/2024 10:33 AM CDT Height 182.9 cm (6') 12/09/2024 10:33 AM CDT Body Mass Index 36.21 12/09/2024 10:33 AM CDT Plan of Treatment Upcoming Encounters Date Type Department Care Team (Late st Contact Info) Description 12/19/2024 2:00 PM CDT Procedure visit [facility] Orthopedics - Orthopedic [facility] [address] [place] [phone] Choco Negro, DO [address] [facility] [place] [address] 02/08/2025 10:00 AM CDT Chart Note [facility] Electronic Organ Mechanic Optometry [facility] [address] [place] [phone] 02/08/2025 10:30 AM CDT Office Visit [facility] Eye Specialists Optometry [facility] [address] [place] [address] Rodríguez Hughes Ayeshagreg Leo, OD [address] [place] [address] 06/21/2025 10:00 AM MUSIC PRODUCER Office Visit [facility] Orthopedics - [facility] [address] [place] [address] Sonal Fontana, SERVICE LOSS CONTROL CONSULTANT [address] [place] [address] Health Maintenance Due Date Last Done Comments PNEUMOCOCCAL VACCINE 50+ YEA RS (1 of 2 - PCV) 1970 FIT-DNA Q 3 years 1996 FIT/FOBT Q 1 year 1996 Flex Sig/CT Colonography Q 5 years 1996 ZOSTER VACCINE (1 of 2) 2001 DTAP/TDAP/TD VACCINES (1 - Tdap) 01/13/2007 01/13/20 07 RSV VACCINE (60+ or ) (1 - Risk 60-74 years 1-dose series) 2011 Abdominal Aortic Aneurysm (A AA) Screening 2016 COVID-19 Vaccine (2023-2 5 season) 2024 02/02/2024, 04/08/2023, 04/09/2022, Additional history exists INFLUENZA VACCINE (#1) 2024 02/16/2023, 2011 COLORECTAL SCREENING 05/11/2029 05/11/2019, 05/11/19 20 Colorectal Cancer Screening 05/11/2029 Medical Devices Implanted Type Area Food And Beverage Analyst Device Identifier Shelf Expiration Date Model / Serial / Lot Comp Fem Attune Poro Cr Sz 6 Lt Cmntls 1504-01-106 - [id number] Implanted:Qty: 1 on 06/23/2024 by Ross Walsh MD at [facility] Knee Left: Knee [employer] [id number] 04/26/2034 1504-01-106 / / [id number] Baseplate Tib Attune Fxd Bearing Sz 6 [id number] - [id number] Implanted:Qty: 1 on 06/23/2024 by Ross Walsh MD at [facility] Knee Left: Knee [employer] [id number] 09/24/2033 [id number] / / [id number] Insert Tib Attune Aox Fb Medial Stblzd Sz6 7mm Lt 1518-20-607 - [id number] Implanted:Qty: 1 on 06/23/2024 by Ross Walsh MD at [facility] Knee Left: Knee [employer] [id number] 10/25/2031 1518-20-607 / / [id number] Bsplt Tib Attune Fix Brng Sz 6 Implanted:Qty: 1 on 03/10/2023 by Ross Walsh MD at [facility] Right: Knee 11/24/2032 [id number] / / [id number] Comp Fem Attune Rt Sz6 Implanted:Qty: 1 on 03/10/2023 by Ross Walsh MD at [facility] Right: Knee [id number] 01/24/2033 [id number] / / [id number] Tibial Insert Fixed Bearing 6 5mm Implanted:Qty: 1 on 03/10/2023 by Ross Walsh MD at [facility] Right: Knee 10/24/2030 [id number] / / [id number] Procedures Procedure Name Priority Date/Time Associated Diagnosis Comments XR ANKLE 3+ VW RIGHT Routine 12/09/2024 10:27 AM CDT Arthritis of right ankle from Last 3 Months Results * XR ANKLE 3+ VW RIGHT [...] DO DIAGNOSTIC IMAGING ORD ERABLES Final Result from Last 3 Months Insurance [facility] [address] [place] [address] [employer] RX [employer] RX Member Subscriber Plan / Payer (Ef fective 2023-Present) Name:Jose Angel Ceja Relation to Subscriber:Self Name:Marcial Jose Angel Payer ID:Not on file Group ID:[id number] Type:RX Medicare Part D Address: [address] [place] [employer] PLANS (INTERNAL) [employer] Internal Plans Advance Directives For more information, please contact: [phone] * Full Code (Latest Code Status on File) Date Activated Date Inactivated Comments 06/23/2024 12:17 PM 06/24/2024 2:20 PM * Full Code Date Activated Date Inactivated Comments 03/10/2023 3:29 PM 03/11/2023 4:34 PM * Full Code Date Activated Date Inactivated Comments 03/10/2023 10:09 AM 03/10/2023 3:29 PM
--- OUTSIDE RECORDS SUMMARY | 2024-12-13 08:37 | XMS_ITS | Encounter Summary ---
Author Organization [facility] Address [address] [place] [address] Care Team Providers Care Communications Administrator Name Role Phone Unavailable Primary Care Provider Unavailabl e Encounter Details Date Type Department Care Team (Latest Contact Info) Description 01/12/2007 Outpatient Historical [facility] Medicine [place] [address] [facility] [address] [place] [phone] Justice Coburn DO NO ADDRESS ON FILE Contusion of Elbow (Primary Dx); Need for Prophylactic Vaccination with Tetanus-Diphtheria (TD) Social History Tobacco Use Types Packs/Day Years Used Date Smoking Tobacco: Never Assessed Sex and Gender Information Value Date Recorded Sex Assigned at Not on file 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
--- OUTSIDE RECORDS SUMMARY | 2024-12-13 08:37 | XMS_ITS | Encounter Summary ---
Author Organization [facility] Address [address] [place] [address] Care Team Providers Care Senior Living Sales Counselor Name Role Phone Unavailable Primary Care Provider Unavailabl e Encounter Details Date Type Department Care Team (Late st Contact Info) Description 01/13/2007 Outpatient Historical [facility] Imaging Services-[facility] Tay[facility] [address] [place] [address] Social History Tobacco Use Types Packs/Day Years Used Date Smoking Tobacco: Never Assessed Sex and Gender Information Value Date Recorded Sex Assigned at Not on file 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
--- OUTSIDE RECORDS SUMMARY | 2024-12-13 08:37 | XMS_ITS | Encounter Summary ---
Author Organization [facility] Address [address] [place] [address] Care Team Providers Care Transition Mgr Rn Name Role Phone Unavailable Primary Care Provider Unavailabl e Encounter Details Date Type Department Care Team (Latest Contact Info) Description 04/29/2005 Outpatient Historical [facility] Urology- [place] [address] [facility] [address]rd [place] [phone] Woo Plata MD NO ADDRESS ON FILE Malig ranjith prostate (Primary Dx) Social History Tobacco Use Types Packs/Day Years Used Date Smoking Tobacco: Never Assessed Sex and Gender Information Value Date Recorded Sex Assigned at Not on file 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
--- OUTSIDE RECORDS SUMMARY | 2024-12-13 08:37 | XMS_ITS | Encounter Summary ---
Author Organization [facility] Address [address] [place] [address] Care Team Providers Care Layer Out Plate Glass Name Role Phone Unavailable Primary Care Provider Unavailabl e Encounter Details Date Type Department Care Team (Late st Contact Info) Description 06/16/2007 Outpatient Historical [facility] Medicine [place] [address] [facility] [address] [place] [phone] Justice Coburn DO NO ADDRESS ON FILE Social History Tobacco Use Types Packs/Day Years Used Date Smoking Tobacco: Never Assessed Sex and Gender Information Value Date Recorded Sex Assigned at Not on file 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 Pulse: 0. Not dictated. BP: 130/82. SUBJECTIVE: I have got a place on my scalp that needs to be checked. I have got several places around my eyes. I think I may need to see a public health sanitarian. The patient relates he is watching his diet. The patient has lost 13 pounds since we saw him in December. 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 OBJECTIVE: GENERAL: The patient is alert. in no acute distress. HEENT: Tympanic membranes not injected. Nose: Nasal turbinates within normal limits. Mouth: Tongue is benign. NECK: Supple. HEART: Regular rate and rhythm. LUNGS: Clear to auscultation. ABDOMEN: Soft. EXTREMITIES: Good range of motion. SKIN: The patient has a actinic keratosis of the scalp. Also, he has several skin tags around his eyes. ASSESSMENT: 1. Actinic keratosis, scalp. 2. Hypertension. 3. Hyperlipidemia. PLAN: 1. Encourage the patient to continue with his weight reduction program which will help both his hypertension and hyperlipidemia. 2. Order for lab work. 3. Will refer to Dr. Alvarenga for dermatology consultation. Justice Coburn D.O. [facility] Electronically Signed by Justice Coburn D.O. 06/21/2007 13:49 , stewart Christianson Document #: [id number] cc: MBLER SEMICONDUCTOR documented in this encounter Plan of Treatment Not on file documented as of this encounter Visit Diagnoses Not on filedocumented in this encounter
--- NOTE | 2024-12-13 08:40 | XR_ITS ---
WS: [id number] Portable AP upright chest, 12/13/2024 Clinical Data: dyspnea/cough Comparison: Two-view chest, 12/10/2021 Findings: No nodules, masses or effusions are seen. The heart is normal. The pulmonary vascularity is not increased. No pneumonia or pneumothorax is seen. Monitor leads are on the chest wall. XR/XR chest 1V portable [id number] Impression: Negative chest.
--- NOTE | 2024-12-13 08:40 | ECG_ITS ---
[facility] Test Date: 2024-12-13 Pat Name: Jose Angel Ceja Department: Room: Gender: Male Customer Facilities Supervisor: : 1950 Requested By: Alan Toledo Order Number: [id number] Mitchel MD: Antwan Bynum M.D. Measurements Intervals [place] Rate: 180 P: 0 OK: 0 QRS: -21 QRSD: 133 T: 147 QT: 277 QTc: 480 Interpretive Statements SUPRAVENTRICULAR TACHYCARDIA BORDERLINE LEFT AXIS DEVIATION [QRS AXIS < -20] RIGHT BUNDLE BRANCH BLOCK [120+ ms QRS DURATION, UPRIGHT V1, 40+ ms S IN I/aVL/V4/V5/V6] LEFT VENTRICULAR HYPERTROPHY AND ST-T CHANGE [VOLTAGE CRITERIA PLUS ST/T ABNORMALITY] CRITICAL TEST RESULT No previous ECG available for comparison Electronically Signed On 12-17-2024 09:14:14 CDT by Antwan Bynum M.D. [id number]
--- NOTE | 2024-12-13 08:40 | W.ED.GENADLT ---
HPI - General Adult General: Chief complaint: Chest Pain Stated complaint: cp , sob Time Seen by Provider: 12/13/24 08:39 History of Present Illness: 74-year-old male presents emergency room with complaint of sensation of chest tightness and rapid heart rate began about 30 minutes prior to arrival. Patient has known history of atrial fibrillation he had ablations also had episodes of V. tach in the past. He just recently seen his guitar maker they added Jardiance and losartan he had some fluid retention and shortness of breath with exertion no associated chest pain. Associated symptoms: Reports chest pain; Deny dyspnea or rash Related Data Home Medications ?Medication ?Instructions ?Recorded ?Confirmed cetirizine 10 mg capsule 10 mg PO DAILY PRN allergies 10/24/19 12/13/24 glucosamine HCl 1,500 mg tablet 1,500 mg PO BID 10/24/19 12/13/24 multivitamin 1 tab PO DAILY 10/24/19 12/13/24 fluticasone propionate 50 1 spray intranasal DAILY PRN 09/26/21 12/13/24 mcg/actuation nasal allergies spray,suspension magnesium oxide 400 mg (241.3 mg 400 mg PO DAILY 12/10/21 12/13/24 magnesium) tablet (MagOx) bumetanide 1 mg tablet 1 mg PO DAILY 09/22/24 12/13/24 spironolactone 25 mg tablet 25 mg PO DAILY 09/22/24 12/13/24 amlodipine 10 mg tablet 10 mg PO DAILY 12/13/24 12/13/24 ammonium lactate 12 % topical cream 1 applic topical DAILY PRN Dry Skin 12/13/24 12/13/24 empagliflozin 10 mg tablet 10 mg PO DAILY 12/13/24 12/13/24 (Jardiance) losartan 25 mg tablet 25 mg PO DAILY 12/13/24 12/13/24 metoprolol succinate 25 mg 25 mg PO DAILY 12/13/24 12/13/24 tablet,extended release 24 hr potassium chloride 20 mEq 20 meq PO DAILY 12/13/24 12/13/24 tablet,extended release(part/cryst) tizanidine 4 mg capsule 4 mg PO .QHS PRN muscle spasticity 12/13/24 12/13/24 Allergies Allergy/AdvReac Type Severity Reaction Status Date / Time codeine Allergy Unknown Unknown Verified 02/24/23 13:46 hydrocodone (From Vicodin) Allergy Unknown Unknown Verified 02/24/23 13:46 lisinopril Allergy Unknown Unknown Verified 02/24/23 13:46 PAWAN Inhibitors Allergy Unknown Verified 02/24/23 13:46 Review of Systems Const: Denies: fever(s) or chills Card: Reports: chest pain Resp: Denies: dyspnea GI: Denies: abdominal pain : Denies: dysuria, urinary frequency or urinary urgency Musc: Denies: neck pain or back pain Skin/Breast: Denies: rash PFSH ED PFSH: Medical History V-tach History of prostate cancer Diverticulosis with hx of diverticulitis Chronic sinusitis with periodic acute infections SRINATH on CPAP compliant Bilateral renal stones Multi stone former requiring multiple procedures over years. Residual small stones bilaterally with rare symptoms on follow-up Hx of urethral stricture Status post extracorporeal shock wave therapy HTN (hypertension) Afib hx of ablation GERD (gastroesophageal reflux disease) Acquired bladder neck obstruction Surgical History History of radiofrequency ablation procedure for cardiac arrhythmia Hx of radical retropubic prostatectomy Family History Father , at age 90 Stroke Mother , at age 86 Parkinson disease Other CAD (coronary artery disease) Cancer Hypertension Social History Smoking and tobacco/nicotine status: unknown if used tobacco/nicotine Alcohol intake: current Alcohol intake frequency: few times a month Substance/Drug Use: never Lives independently: No Household members: spouse Marital status: Current occupational status: retired Physical Exam Const: GENERAL APPEARANCE: cooperative ORIENTATION/CONSCIOUSNESS: Yes awake, Yes oriented to person, Yes oriented to place and Yes oriented to time HENMT: COMMON NORMALS: normocephalic, atraumatic and hearing grossly normal bilaterally HEAD & SCALP: normocephalic and atraumatic Resp: COMMON NORMALS: normal respiratory effort, No retractions, No use of accessory muscles and clear to auscultation bilaterally AUSCULTATION: clear to auscultation bilaterally Cardio: COMMON NORMALS: No murmurs present (Cardio) RATE: tachycardic RHYTHM: abnormal rhythm irregularly irregular GI: COMMON NORMALS: Soft to palpation and No hepatosplenomegaly present AUSCULTATION: Yes normoactive bowel sounds PALPATION: Yes Soft to palpation, No Tenderness to palpation present (GI), No Guarding due to palpation present (GI) and Yes No hepatosplenomegaly present Extremity: COMMON NORMALS: normal to inspection, capillary refill normal, no clubbing, cyanosis or edema, no calf tenderness and no pedal edema Neuro: SENSORIUM/ORIENTATION: Yes oriented to person, Yes oriented to place and Yes oriented to time Skin: COMMON NORMALS: no rashes or lesions noted GENERAL SKIN EXAM: no rashes or lesions noted Course Vital Signs: Vital signs: Vital Signs Temperature 98.0 F 12/13/24 08:51 Pulse Rate 56 L 12/13/24 11:15 Respiratory Rate 17 12/13/24 11:15 Blood Pressure 122/69 12/13/24 11:15 Pulse Oximetry 97 12/13/24 11:15 Oxygen Delivery Me thod Room Air 12/13/24 08:55 MDM - General Adult Medical Decision Making On initial exam EKG appears to be A-fib with RVR there are some question of P waves present I think they may actually be his T waves. On auscultation he is irregularly irregular. Patient converted shortly after receiving initial Cardizem bolus the IV drip of Cardizem was ceased and the patient maintained his sinus bradycardia. He is asymptomatic at this time serial cardiac enzymes did not show positive delta troponin. Will discharge patient home continue current medications set him up for follow-up 72-hour Holter monitor and recommend he contact his guitar maker for follow-up. Return to the emergency room if he has further symptoms. Medical Records I reviewed the patient's medical records. Lab Data I reviewed the patient's lab results. 12/13/24 08:50 12/13/24 08:50 Radiology Impressions Chest X-Ray 12/13/24 08:40 Impression: Negative chest. Laboratory Results WBC 8.89 10^3/uL (3.29-11.43) 12/13/24 08:50 RBC 5.08 10^6/uL (3.85-5.65) 12/13/24 08:50 Hgb 14.90 g/dL (11.27-16.99) 12/13/24 08:50 Hct 45.8 % (37-53) 12/13/24 08:50 MCV 90.2 fl (82-101) 12/13/24 08:50 MCH 29.3 pg (27-33) 12/13/24 08:50 MCHC 32.5 g/dL (30-55) 12/13/24 08:50 RDW 14.4 % (12.1-15.1) 12/13/24 08:50 Plt Count 223 10^3/cmm (157-399) 12/13/24 08:50 MPV 10.9 fL (7.4-10.4) H 12/13/24 08:50 Neut % (Auto) 52.6 % 12/13/24 08:50 Lymph % (Auto) 32.5 % 12/13/24 08:50 [place] % (Auto) 11.0 % 12/13/24 08:50 Eos % (Auto) 3.0 % 12/13/24 08:50 Baso % (Auto) 0.6 % 12/13/24 08:50 Neut # (Auto) 4.67 10^3/uL (1.8-7.7) 12/13/24 08:50 Lymph # (Auto) 2.9 10^3/uL (0.8-4.8) 12/13/24 08:50 [place] # (Auto) 1.0 10^3/uL (0.2-0.9) H 12/13/24 08:50 Eos # (Auto) 0.3 10^3/uL (0.0-0.8) 12/13/24 08:50 Baso # (Auto) 0.1 10^3/uL (0.0-0.1) 12/13/24 08:50 Nucleated RBC % (auto) 0 % 12/13/24 08:50 Nucleated RBCs # 0.0 /100WBC 12/13/24 08:50 Sodium 140 mmol/L (136-145) 12/13/24 08:50 Potassium 4.3 mmol/L (3.5-5.1) 12/13/24 08:50 Chloride 103 mmol/L (98-107) 12/13/24 08:50 Carbon Dioxide 21 mmol/L (22-29) L 12/13/24 08:50 Anion Gap 20.3 (5-19) H 12/13/24 08:50 BUN 33 mg/dL (8-23) H 12/13/24 08:50 Creatinine 1.8 mg/dL (0.7-1.2) H 12/13/24 08:50 GFR Calculation Not Reportable 12/13/24 08:50 Glucose 107 mg/dL (65-115) 12/13/24 08:50 Calculated Osmolality 298 mOsm/kg (285-295) H 12/13/24 08:50 Calcium 9.9 mg/dL (8.5-10.5) 12/13/24 08:50 Total Bilirubin 0.6 mg/dL (0.15-1.2) 12/13/24 08:50 AST 12 U/L (0-40) 12/13/24 08:50 ALT 10 U/L (0-41) 12/13/24 08:50 Alkaline Phosphatase 95 U/L (40-130) 12/13/24 08:50 Troponin T Baseline 18 ng/L (0-15) H 12/13/24 08:50 Troponin T 120 Minute 18.30 ng/L (0-15) H 12/13/24 10:34 Delta Troponin T 0.30 ABS# (0-10) 12/13/24 10:34 Total Protein 7.5 g/dL (6.6-8.7) 12/13/24 08:50 Albumin 4.6 g/dL (3.5-5.2) 12/13/24 08:50 Globulin 2.9 g/dL (1.3-4.6) 12/13/24 08:50 All radiology interpretation(s) finalized by discharge EKG Data EKG 1: Interpretation: EKG 12/13/2024 837 tachycardia with a rate of 180 QTc 480. Appears to be A-fib with RVR. Computer generated interpretation: Chest X-Ray 12/13/24 08:40 Impression: Negative chest. EKG 2: Interpretation: EKG 12/13/2024 8:56 AM sinus rhythm with right bundle branch block rate of 64 QTc 440 DE interval 169. No acute ST elevation. Compared to EKG done earlier rate tachycardia is no longer present. Computer generated interpretation: Chest X-Ray 12/13/24 08:40 Impression: Negative chest. Discharge Plan Discharge Patient Disposition: Home Clinical Impression: Atrial fibrillation with rapid ventricular response, Hx of prior ablation treatment Condition: Stable Prescriptions: No Action cetirizine 10 mg capsule 10 mg PO DAILY PRN (Reason: allergies) glucosamine HCl 1,500 mg tablet 1,500 mg PO BID Rx Instructions: administer with a meal multivitamin Tablet 1 tab PO DAILY fluticasone propionate 50 mcg/actuation spray,suspension 1 spray intranasal DAILY PRN (Reason: allergies) Rx Instructions: administer into each nostril magnesium oxide [MagOx] 400 mg (241.3 mg magnesium) tablet 400 mg PO DAILY spironolactone 25 mg tablet 25 mg PO DAILY bumetanide 1 mg tablet 1 mg PO DAILY losartan 25 mg tablet 25 mg PO DAILY Jardiance 10 mg tablet 10 mg PO DAILY potassium chloride 20 mEq tablet,ER particles/crystals 20 meq PO DAILY amlodipine 10 mg tablet 10 mg PO DAILY ammonium lactate 12 % cream 1 applic topical DAILY PRN (Reason: Dry Skin) metoprolol succinate 25 mg tablet extended release 24 hr 25 mg PO DAILY tizanidine 4 mg capsule 4 mg PO .QHS PRN (Reason: muscle spasticity) Discharge Orders: Discharge ED (Routine); Ordered 12/13/24 Ordered By: Alan Hayden Referrals: Awais Lewis MD [Primary Care Provider, Family Practice] Discharge Diet: Usual diet Discharge Activity: Resume usual activity Patient Instructions: Opioid Safety, Pain Management, Patient Portal & Blossom Instructions Activity Restrictions/Additional Instructions: Thank you for choosing [facility] for your healthcare needs today. It is very important that you follow up as instructed or that you return to the Emergency Department should you have concerns or if your condition changes or worsens in any way. You were seen in the emergency room with elevated heart rate. When you initially arrived in the emergency room you are in atrial fibrillation rapid ventricular response. This responded well to the medications given we observed you for a time and did lab work including cardiac enzymes all of which appear to be unremarkable at this time. Will discharge you home continue current medications follow-up with your guitar maker will set you up for a 72-hour Holter monitor which guitar maker can review. If recurrent symptoms return to the emergency room. Print Language: Setswana Coding Level of Care Code ED Inspector Packer for Liza Prabhakar
[2024-12-13] MEDS: dilTIAZem 5 mg/mL SDV 5 mL 20 MG IVP (08:55)
[2024-12-13 08:56] LABS: Hematocrit 45.8 % (37-53); Hemoglobin 14.90 g/dL (11.27-16.99); Mean Corpuscular HGB Conc 32.5 g/dL (30-55); Mean Corpuscular Hemoglobin 29.3 pg (27-33); Mean Corpuscular Volume 90.2 fl (82-101); Nucleated Red Blood Cells % 0 %; Platelet Count 223 10^3/cmm (157-399); Red Blood Count 5.08 10^6/uL (3.85-5.65); White Blood Count 8.89 10^3/uL (3.29-11.43)
[2024-12-13] MEDS: dilTIAZem 100 MG in sodium chloride 0.9% (add-van) 100 ML IV (08:58)
[2024-12-13 09:13] LABS: Alanine Aminotransferase 10 U/L (0-41); Albumin Level 4.6 g/dL (3.5-5.2); Alkaline Phosphatase 95 U/L (40-130); Anion Gap 20.3 (5-19); Aspartate Amino Transferase 12 U/L (0-40); Blood Urea Nitrogen 33 mg/dL (8-23); Calcium 9.9 mg/dL (8.5-10.5); Carbon Dioxide 21 mmol/L (22-29); Chloride 103 mmol/L (98-107); Globulin 2.9 g/dL (1.3-4.6); Glucose 107 mg/dL (65-115); Osmolality Calculated 298 mOsm/kg (285-295); Potassium 4.3 mmol/L (3.5-5.1); Sodium 140 mmol/L (136-145); Total Protein 7.5 g/dL (6.6-8.7); Troponin(5th) Baseline 18 ng/L (0-15)
--- NOTE | 2024-12-13 10:40 | ECG_ITS ---
[facility] Date: 2024-12-13 Pat Name: Jose Angel Ceja Department: Room: Gender: Male Pipe Roller: : 1950 Requested By: Alan Toledo Order Number: [id number] Mitchel MD: Antwan Bynum M.D. Measurements Intervals [place] Rate: 64 P: 74 NV: 169 QRS: -39 QRSD: 152 T: 33 QT: 425 QTc: 440 Interpretive Statements SINUS RHYTHM LEFT AXIS DEVIATION [QRS AXIS < -30] RIGHT BUNDLE BRANCH BLOCK [120+ ms QRS DURATION, UPRIGHT V1, 40+ ms S IN I/aVL/V4/V5/V6] Compared to ECG 12/13/2024 08:37:17 Left ventricular hypertrophy no longer present ST (T wave) deviation no longer present Electronically Signed On 12-17-2024 09:47:46 CDT by Antwan Bynum M.D. [email or web address] [id number]
[2024-12-13 10:59] LABS: Troponin 5 2HR 18.30 ng/L (0-15); Troponin 5 2HR Delta 0.30 ABS# (0-10)
--- NOTE | 2024-12-15 09:43 | DCPLANNER ---
messaged heart care for holter
== END 2024-12-13 12:24 | disposition home or self-care (01) ==
PROVIDERS: Emergency Provider Family Medicine; PCP Family Medicine
DX: I48.20 Chronic atrial fibrillation, unspecified (principal); Z86.79 Personal history of other diseases of the circulatory system; I10 Essential (primary) hypertension; Z85.46 Personal history of malignant neoplasm of prostate
CPT/HCPCS: 36415; 71045; 80053; 84484; 85025; 93005; 96374; 96375; 99285; J3490; J9999

== ENCOUNTER → 2024-12-14 10:39 | Outpatient (BNVA) | payer MEDICARE, SELFPAY | PROVIDERS: PCP Family Medicine; Visit Provider Nurse Practitioner Family | DX: L30.4 Erythema intertrigo (principal); L72.0 Epidermal cyst; L82.1 Other seborrheic keratosis; L56.5 Disseminated superficial actinic porokeratosis (DSAP); L57.8 Other skin changes due to chronic exposure to nonionizing radiation; Z08 Encounter for follow-up examination after completed treatment for malignant neoplasm; Z86.006 Personal history of melanoma in-situ; L57.0 Actinic keratosis | CPT/HCPCS: 17000; 99213 ==

== ENCOUNTER → 2024-12-16 09:14 | Outpatient (BNVA) | payer MEDICARE, SELFPAY | PROVIDERS: PCP Family Medicine; Visit Provider Family Medicine | DX: I48.91 Unspecified atrial fibrillation (principal) | CPT/HCPCS: 80048; 80061 ==

== ENCOUNTER 2024-12-29 08:35 | Observation (INO) | payer MEDICARE, SELFPAY ==
[2024-12-29] VITALS (26 sets, daily range): BP systolic 100–131; BP diastolic 62–98; PULSE 44–184; RESP 12–23; TEMP 36.5; O2SAT 91–100; BMI 34.0
--- OUTSIDE RECORDS SUMMARY | 2024-12-29 08:39 | XMS_ITS | Encounter Summary ---
Author Organization [facility] Address [address] [place] [address] Care Team Providers Care Injection Maintenance Technician Name Role Phone Unavailable Primary Care Provider Unavailabl e Encounter Details Date Type Department Care Team (Latest Contact Info) Description 03/26/2005 Outpatient Historical [facility] Family Medicine [address] [phone] Justice Coburn DO NO ADDRESS ON FILE Routine medical exam (Primary Dx) Social History Tobacco Use Types Packs/Day Years Used Date Smoking Tobacco: Never Assessed Sex and Gender Information Value Date Recorded Sex Assigned at Not on file 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
--- OUTSIDE RECORDS SUMMARY | 2024-12-29 08:40 | XMS_ITS | Clinical Summary ---
Author Organization [facility] Address [address] [facility] [place] [address] Care Team Providers Care Unit Coordinator Name Role Phone Unavailable Primary Care Provider [...] Active GLUCOSAM & CHONDROIT-MV & MIN3 (GLUCOSAMINE &JHFKRFTUS-MZ-TF N3 ORAL) Take by mouth daily. 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
--- OUTSIDE RECORDS SUMMARY | 2024-12-29 08:40 | XMS_ITS | Encounter Summary ---
Author Organization [facility] Address [address] [place] [address] Care Team Providers Care General Internist Name Role Phone Unavailable Primary Care Provider Unavailabl e Encounter Details Date Type Department Care Team (Latest Contact Info) Description 04/29/2005 Outpatient Historical [facility] Urology- [place] [address] [facility] [address] 3[address] [place] [phone] Woo Plata MD NO ADDRESS ON FILE Malig ranjith prostate (Primary Dx) Social History Tobacco Use Types Packs/Day Years Used Date Smoking Tobacco: Never Assessed Sex and Gender Information Value Date Recorded Sex Assigned at Not on file 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
--- OUTSIDE RECORDS SUMMARY | 2024-12-29 08:40 | XMS_ITS | Encounter Summary ---
Author Organization [facility] Address [address] [place] [address] Care Team Providers Care Desk Representative Name Role Phone Unavailable Primary Care Provider Unavailabl e Encounter Details Date Type Department Care Team (Late st Contact Info) Description 06/16/[address] 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 The patient relates he is watching his diet. The patient has lost 13 pounds since we saw him in December. 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 OBJECTIVE: GENERAL: The patient is alert. in [...] Alvarenga for dermatology consultation. Justice Coburn D.O. [facility] Electronically Signed by Justice Coburn D.O. 06/21/2007 13:49 , stewart Christianson Document #: [id number] cc: GNA documented in this encounter Plan of Treatment Not on file documented as of this encounter Visit Diagnoses Not on filedocumented in this encounter
--- OUTSIDE RECORDS SUMMARY | 2024-12-29 08:40 | XMS_ITS | Encounter Summary ---
Author Organization [facility] Address [address] [place] [address] Care Team Providers Care Firm Administrator Name Role Phone Unavailable Primary Care Provider Unavailabl e Encounter Details Date Type Department Care Team (Late st Contact Info) Description 09/08/2006 Outpatient Historical [facility] Imaging Services-[facility] [place] [address] [place] [address] Social History Tobacco Use Types Packs/Day Years Used Date Smoking Tobacco: Never Assessed Sex and Gender Information Value Date Recorded Sex Assigned at Not on file 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
--- OUTSIDE RECORDS SUMMARY | 2024-12-29 08:40 | XMS_ITS | Encounter Summary ---
Author Organization [facility] Address [address] [place] [address] Care Team Providers Care Hydraulic Bull Riveter Operator Name Role Phone Unavailable Primary Care Provider Unavailabl e Encounter Details Date Type Department Care Team (Latest Contact Info) Description 09/07/2006 Outpatient Historical [facility] Medicine [address] [phone] Justice Coburn DO NO ADDRESS ON FILE Cough (Primary Dx); Acute Bronchitis; Unspecified Essential Hypertension Social History Tobacco Use Types Packs/Day Years Used Date Smoking Tobacco: Never Assessed Sex and Gender Information Value Date Recorded Sex Assigned at Not on file 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
--- OUTSIDE RECORDS SUMMARY | 2024-12-29 08:40 | XMS_ITS | Encounter Summary ---
Author Organization [facility] Address [address] [place] [address] Care Team Providers Care Diabetologist Name Role Phone Unavailable Primary Care Provider Unavailabl e Encounter Details Date Type Department Care Team (Latest Contact Info) Description 01/12/2007 Outpatient Historical [facility] Medicine [place] [address] [facility] [address] [place] [phone] Justice Coburn DO NO ADDRESS ON FILE Contusion of Elbow (Primary Dx); Need for Prophylactic Vaccination with Tetanus-Diphtheria (TD) Social History Tobacco Use Types Packs/Day Years Used Date Smoking Tobacco: Never Assessed Sex and Gender Information Value Date Recorded Sex Assigned at Not on file 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
--- OUTSIDE RECORDS SUMMARY | 2024-12-29 08:40 | XMS_ITS | Encounter Summary ---
Author Organization [facility] Address [address] [place] [address] Care Team Providers Care Enginehouse Brakeman Name Role Phone Unavailable Primary Care Provider Unavailabl e Encounter Details Date Type Department Care Team (Late st Contact Info) Description 12/27/2024 External Device Data ST[place] ABSTRACTION Provider, Abstract NO ADDRESS ON FILE Social History Tobacco Use Types Packs/Day Years Used Date Smoking Tobacco: Former Cigarettes 0.5 20 1 3 - 2002 Smokeless Tobacco: Never Comments:Quit smoking: Quit smoking in 1995 Alcohol Use Standard Drinks/Week Comments Yes 0 (1 standard drink = 0.6 oz pur e alcohol) rarely Feeling Safe Answer Date Recorded Are you in a relationship wi th someone who hurts you emotionally and/or physically? No 06/23/2024 Food Insecurity Answer Date Recorded Social/Environmental Concerns No concerns Transportation Needs Answer Date Record ed Social/Environmental Concerns No concerns Housing Stability Answer Date Recorded Social/Environmental Concerns No concerns Utility Needs Answer Date Recorded Social/Environmental Concerns No concerns Sex and Gender Information Value Date Recorded Sex Assigned at Not on file Legal Sex Male 8:41 AM PRODUCT SUPPORT ANALYST Gender Identity Not on file Sexual Orientation Not on file documented as of this encounter Plan of Treatment Upcoming Encounters Date Type Department Care Team (Late st Contact Info) Description 01/26/2025 9:45 AM CDT Appointment [facility] Physical Therapy [address] [place] [phone] Choco Negro, DO [address] [place] [address] Belle Monique, Physical Therapist 01/30/2025 9:00 AM CDT Procedure visit [facility] [address] [facility] [place] [address] Choco Negro, DO [address] [place] [address] 02/08/2025 10:00 AM CDT Chart Note [facility] Rep Optometry [address] [place] [address] 02/08/2025 10:30 AM CDT Office Visit [facility] Optometry [address] [place] [address] Ayesha Reyez, OD [address] [place] [address] 06/21/2025 10:00 AM PRODUCT SUPPORT ANALYST Office Visit [facility] [address] [place] [address] Sonal Fontana, CARDIOVASCULAR TECHNOLOGIST [address] [place] [address] documented as of this encounter Visit Diagnoses Not on filedocumented in this encounter
--- OUTSIDE RECORDS SUMMARY | 2024-12-29 08:40 | XMS_ITS | Encounter Summary ---
Author Organization [facility] Address [address] [place] [address] Care Team Providers Care Agency Operator Name Role Phone Unavailable Primary Care Provider Unavailabl e Encounter Details Date Type Department Care Team (Late st Contact Info) Description 01/13/2007 Outpatient Historical [facility] Services-Mark Taylornn Dubois [address] [place] [address] Social History Tobacco Use Types Packs/Day Years Used Date Smoking Tobacco: Never Assessed Sex and Gender Information Value Date Recorded Sex Assigned at Not on file 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
--- OUTSIDE RECORDS SUMMARY | 2024-12-29 08:40 | XMS_ITS | Clinical Summary ---
Author Organization [facility] Address [address] 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 Active ketoconazole (NIZORAL) 2 [...] 7 days. 8 Capsule 06/24/2024 8:49 AM LEATHER SOFTENER 5 Active oxyCODONE (ROXICODONE) 5 mg tabletIndication s:Status post total left knee replacement Take 1 Tablet (5 mg) by mouth every 4 hours as needed for Pain. Max Daily Amount: 30 mg 42 Tablet 06/24/2024 8:49 AM LEATHER SOFTENER 5 Active traMADoL (ULTRAM) 50 mg tabletIndication s:Status post total left knee replacement Take 1 Tablet (50 mg) by mouth every 6 hours as needed for Pain. 28 Tablet 06/24/2024 8:49 AM LEATHER SOFTENER 5 Active docusate sodium (Colace) 100 mg capsule Take 1 Capsule (100 mg) by mouth 2 times daily. 60 Capsule 06/24/2024 8:49 AM LEATHER SOFTENER 5 Active naloxone (NARCAN) 4 mg/spray Paradise, Non-Aerosol EMERGENCY USE ONLY: Administer 1 spray [...] Encounters Date Type Department Care Team Description 12/27/2024 External Device Data STL ABSTRACTION Provider, Abstract 12/13/2024 External Device Data STL ABSTRACTION Provider, Abstract 12/09/2024 10:30 AM CDT Office Visit [facility] [address] [place] [phone] Choco Negro, Arthritis of right ankle (Primary Dx); Lymphedema of both lower extremities; Lymphedema of lower extremity, unspecified laterality 12/09/2024 10:25 AM CDT Ancillary Procedure [facility] [address] [place] [phone] Choco Negro, Arthritis of right ankle 11/18/2024 Telephone [facility] [address] [place] [phone] Grzegorz Whatley MD Question 11/15/2024 Orders Only [facility] [address] [place] [phone] Sonal Fontana NP Arthritis of right ankle (Primary Dx) 10/11/2024 [...] on file Legal Sex Male 8:41 AM LEATHER SOFTENER Gender Identity Not on file Sexual Orientation Not on file Last Filed Vital Signs Vital Sign Reading Time Taken Comments Blood Pressure 124/78 12/09/2024 10:33 AM CDT Pulse 60 06/24/2024 8:21 AM LEATHER SOFTENER Temperature 36.6 C (97.8 F) 06/24/2024 8:21 AM LEATHER SOFTENER Respiratory Rate 16 06/24/2024 8:21 AM LEATHER SOFTENER Oxygen Saturation 99% 06/24/2024 8:21 AM LEATHER SOFTENER Inhaled Oxygen Concentration - - Weight 121.1 kg (267 lb) 12/09/2024 10:33 AM CDT Height 182.9 cm (6') 12/09/2024 10:33 AM CDT Body Mass Index 36.21 12/09/2024 10:33 AM CDT Plan of Treatment Upcoming Encounters Date Type Department Care Team (Late st Contact Info) Description 01/26/2025 9:45 AM CDT Appointment [facility] Physical Therapy [address] [place] [phone] Choco Negro, [address] [place] [phone] Belle Monique, Physical Therapist 01/30/2025 9:00 AM CDT Procedure visit [facility] [address] [place] [address] MarkyChoco arceo Ty, DO [address] [place] [phone] 02/08/2025 10:00 AM CDT Chart Note [facility] Master Tax Advisor Optometry [address] [place] [address] 02/08/2025 10:30 AM CDT Office Visit [facility] Optometry [address] [place] [phone] Ayesha Reyez, OD [address] [place] [address] 06/21/2025 10:00 AM LEATHER SOFTENER Office Visit [facility] [address] [place] [address] Sonal Fontana, PAPER DELIVERER [address] [place] [address] Health Maintenance Due Date Last [...] Abdominal Aortic Aneurysm (A AA) Screening 2016 INFLUENZA VACCINE (#1) 2024 02/16/2023, 2011 COVID-19 Vaccine (2023- 5 season) 2024 02/02/2024, 04/08/2023, 04/09/2022, Additional history exists COLORECTAL SCREENING 05/11/2029 05/11/2019, 05/11/19 20 Colorectal Cancer Screening 05/11/2029 Medical Devices Implanted Type Area Director Sales Training Device Identifier Shelf Expiration Date Model / Serial / Lot Comp Fem Attune Poro Cr Sz 6 Lt Cmntls 1504-01-106 - [id number] Implanted:Qty: 1 on 06/23/2024 by Ross Walsh MD at [facility] Knee Left: Knee [employer] [id number] 04/26/2034 1504-01-106 / / [id number] Baseplate Tib Attune Fxd Bearing Sz 6 [id number] - [id number] Implanted:Qty: 1 on 06/23/2024 by Ross Walsh MD at [facility] Knee Left: Knee [employer] [id number] 09/24/2033 [id number] / / [id number] Insert Tib Attune Aox Fb Medial Stblzd Sz6 7mm Lt 1518-20-607 - [id number] Implanted:Qty: 1 on 06/23/2024 by Ross Walsh MD at [facility] Knee Left: Knee [employer] [id number] 10/25/2031 1518-20-607 / / [id number] Bsplt Tib Attune Fix Brng Sz 6 Implanted:Qty: 1 on 03/10/2023 by Ross Walsh MD at [facility] Right: Knee 11/24/2032 [id number] / / [id number] Comp Fem Attune Rt Sz6 Implanted:Qty: 1 on 03/10/2023 by Ross Walsh MD at [facility] Right: Knee [id number] 01/24/2033 [id number] / / [id number] Tibial Insert Fixed Bearing 6 5mm Implanted:Qty: 1 on 03/10/2023 by Ross Walsh MD at [facility] Right: Knee 10/24/2030 [id number] / / [id number] Procedures Procedure Name Priority Date/Time Associated Diagnosis [...] prominent soft tissue swelling, no acute fractures. Choco Negro DO DIAGNOSTIC IMAGING ORD ERABLES Final Result from Last [address] [place] [address] [facility] [id number] [employer] RX [employer] RX Member Subscriber Plan / Payer (Ef fective 2023-Present) Name:Jose Angel Ceja Relation to Subscriber:Self Name:Jose Angel Ceja Payer ID:Not on file Group ID:[id number] Type:RX Medicare Part D [place] [facility] [place] ([place]NAL) [facility] Internal Plans Advance Directives For more information, please contact: [phone] * Full Code (Latest Code Status on File) Date Activated Date Inactivated Comments 06/23/2024 12:17 PM 06/24/2024 2:20 PM * Full Code Date Activated Date Inactivated Comments 03/10/2023 3:29 PM 03/11/2023 4:34 PM * Full Code Date Activated Date Inactivated Comments 03/10/2023 10:09 AM 03/10/2023 3:29 PM
--- NOTE | 2024-12-29 08:45 | ECG_ITS ---
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 Measurements Intervals Elbert Rate: 188 P: 0 OK: 0 QRS: -16 QRSD: 130 T: 140 QT: 282 QTc: 500 Interpretive Statements ATRIAL FIBRILLATION WITH RAPID VENTRICULAR RESPONSE WITH ABERRANT CONDUCTION OR VENTRICULAR PREMATURE COMPLEXES POSSIBLE RIGHT VENTRICULAR CONDUCTION DELAY [RSR (QR) IN V1/V2] POSSIBLE LEFT VENTRICULAR HYPERTROPHY [VOLTAGE CRITERIA PLUS LAE OR QRS WIDENING] Compared to ECG 12/13/2024 08:56:59 Ventricular premature complex(es) now present Aberrant conduction of supraventricular beat(s) now present ST (T wave) deviation now present Sinus rhythm no longer present Left-axis deviation no longer present Right bundle-branch block no longer present Electronically Signed On 12-30-2024 09:12:46 CDT by Antwan Bynum M.D. [id number]
--- NOTE | 2024-12-29 08:45 | XR_ITS ---
WS: [id number] Portable AP upright chest, 12/29/2024 Clinical Data: cp Comparison: Portable chest, 12/13/2024 Findings: No nodules, masses or effusions are seen. The heart is normal. The pulmonary vascularity is not increased. No pneumonia or pneumothorax is seen. The aortic arch shows tortuosity as does the descending thoracic aorta. There are monitor leads and recording devices on the chest wall. XR/XR chest 1V portable [id number] Impression: Atherosclerosis.
[2024-12-29] MEDS: amiodarone 50 mg/mL SDV 3 mL 150 MG IVP (08:52)
[2024-12-29 08:56] LABS: Hematocrit 44.5 % (37-53); Hemoglobin 14.50 g/dL (11.27-16.99); Mean Corpuscular HGB Conc 32.6 g/dL (30-55); Mean Corpuscular Hemoglobin 29.1 pg (27-33); Mean Corpuscular Volume 89.4 fl (82-101); Nucleated Red Blood Cells % 0 %; Platelet Count 192 10^3/cmm (157-399); Red Blood Count 4.98 10^6/uL (3.85-5.65); White Blood Count 8.92 10^3/uL (3.29-11.43)
[2024-12-29 09:10] LABS: INR 1.08 (0.8-1.2); Prothrombin Time 14.80 SECONDS (12.1-14.9)
[2024-12-29] MEDS: AMIODARONE HCL/D5W 900 MG/500 ML BAG 33.33 MG IV (09:11)
[2024-12-29 09:13] LABS: Alanine Aminotransferase 10 U/L (0-41); Albumin Level 4.4 g/dL (3.5-5.2); Alkaline Phosphatase 90 U/L (40-130); Anion Gap 20.2 (5-19); Aspartate Amino Transferase 14 U/L (0-40); Blood Urea Nitrogen 40 mg/dL (8-23); Calcium 9.6 mg/dL (8.5-10.5); Carbon Dioxide 19 mmol/L (22-29); Chloride 104 mmol/L (98-107); Creatinine Clr Calc Pharmacy 44.0854; Globulin 2.8 g/dL (1.3-4.6); Glucose 97 mg/dL (65-115); Osmolality Calculated 298 mOsm/kg (285-295); Potassium 4.2 mmol/L (3.5-5.1); Sodium 139 mmol/L (136-145); Total Protein 7.2 g/dL (6.6-8.7)
[2024-12-29 09:15] LABS: Troponin(5th) Baseline 19 ng/L (0-15)
--- NOTE | 2024-12-29 09:34 | W.ED.ARRPALP ---
HPI - Arrhythmia/Palpitations General: Chief Complaint: Arrhythmia/Palpitations Stated Complaint: chest pain Time Seen by Provider: 12/29/24 08:43 Source: patient Mode of arrival: ambulatory Limitations: no limitations History of Present Illness: 74-year-old male who states he has had a history of A-fib in the past along with V. tach has had ablations the past he was seen here a month ago was given Cardizem and converted out of what they said was A-fib patient states he thinks he may have been in V. tach. He states that this morning started for like his heart was racing again having some chest pains. He denies any shortness of breath denies any vomiting Associated symptoms: Deny nausea or vomiting Related Data Home Medications ?Medication ?Instructions ?Recorded ?Confirmed cetirizine 10 mg capsule 10 mg PO DAILY PRN allergies 10/24/19 12/13/24 glucosamine HCl 1,500 mg tablet 1,500 mg PO BID 10/24/19 12/13/24 multivitamin 1 tab PO DAILY 10/24/19 12/13/24 fluticasone propionate 50 1 spray intranasal DAILY PRN 09/26/21 12/13/24 mcg/actuation nasal allergies spray,suspension magnesium oxide 400 mg (241.3 mg 400 mg PO DAILY 12/10/21 12/13/24 magnesium) tablet (MagOx) bumetanide 1 mg tablet 1 mg PO DAILY 09/22/24 12/13/24 spironolactone 25 mg tablet 25 mg PO DAILY 09/22/24 12/13/24 amlodipine 10 mg tablet 10 mg PO DAILY 12/13/24 12/13/24 ammonium lactate 12 % topical cream 1 applic topical DAILY PRN Dry Skin 12/13/24 12/13/24 empagliflozin 10 mg tablet 10 mg PO DAILY 12/13/24 12/13/24 (Jardiance) losartan 25 mg tablet 25 mg PO DAILY 12/13/24 12/13/24 metoprolol succinate 25 mg 25 mg PO DAILY 12/13/24 12/13/24 tablet,extended release 24 hr potassium chloride 20 mEq 20 meq PO DAILY 12/13/24 12/13/24 tablet,extended release(part/cryst) tizanidine 4 mg capsule 4 mg PO .QHS PRN muscle spasticity 12/13/24 12/13/24 Allergies Allergy/AdvReac Type Severity Reaction Status Date / Time codeine Allergy Unknown Unknown Verified 02/24/23 13:46 hydrocodone (From Vicodin) Allergy Unknown Unknown Verified 02/24/23 13:46 lisinopril Allergy Unknown Unknown Verified 02/24/23 13:46 PAWAN Inhibitors Allergy Unknown Verified 02/24/23 13:46 Review of Systems Const: Denies: fever(s), chills, body aches or change in appetite ENMT: Denies: throat pain or dental pain Card: Reports: chest pain, palpitations and irregular heart rhythm Resp: Denies: dyspnea GI: Denies: abdominal pain, nausea, vomiting or diarrhea : Denies: dysuria Musc: Denies: neck pain or back pain Skin/Breast: Denies: rash Neuro: Denies: headache(s) PFSH ED PFSH: Medical History V-tach History of prostate cancer Diverticulosis with hx of diverticulitis Chronic sinusitis with periodic acute infections SRINATH on CPAP compliant Bilateral renal stones Multi stone former requiring multiple procedures over years. Residual small stones bilaterally with rare symptoms on follow-up Hx of urethral stricture Status post extracorporeal shock wave therapy HTN (hypertension) Afib hx of ablation GERD (gastroesophageal reflux disease) Acquired bladder neck obstruction Surgical History History of radiofrequency ablation procedure for cardiac arrhythmia Hx of radical retropubic prostatectomy Family History Father , at age 90 Stroke Mother , at age 86 Parkinson disease Other CAD (coronary artery disease) Cancer Hypertension Social History Smoking and tobacco/nicotine status: never used tobacco/nicotine Alcohol intake: current Alcohol intake frequency: few times a month Substance/Drug Use: never Lives independently: No Household members: spouse Marital status: Current occupational status: retired Physical Exam Const: COMMON NORMALS: no acute distress, patient oriented x3 and healthy appearing HENMT: COMMON NORMALS: normocephalic and atraumatic HEAD & SCALP: normocephalic and atraumatic Eye: COMMON NORMALS: conjunctivae normal CONJUNCTIVA: Yes conjunctivae normal Neck/C-Spine: COMMON NORMALS: full ROM and supple Chest: COMMONS NORMALS: normal inspection of the chest Resp: COMMON NORMALS: normal respiratory effort, No retractions, No use of accessory muscles and clear to auscultation bilaterally AUSCULTATION: clear to auscultation bilaterally Cardio: COMMON NORMALS: No murmurs present (Cardio) RATE: tachycardic RHYTHM: abnormal rhythm irregularly irregular GI: COMMON NORMALS: Normal to inspection, nondistended, normoactive bowel sounds present, Soft to palpation, non-tender and no masses PALPATION: Yes Soft to palpation Extremity: COMMON NORMALS: normal to inspection and full ROM Neuro: COMMON NORMALS: patient oriented x3, moves all extremities and no focal motor deficits Psych: COMMON NORMALS: mental status grossly normal, Normal thought process present and cooperative THOUGHT PROCESS: Normal thought process present Skin: COMMON NORMALS: no rashes or lesions noted and no wounds GENERAL SKIN EXAM: no rashes or lesions noted Procedures Procedural Sedation Indication: other (cardioversion) ASA Class: I Time of Last PO Intake: 06:00 Preparation: court monitor applied IV Etomidate dose (mg): 10 Course Vital Signs: Vital signs: Vital Signs Pulse Rate 58 L 12/29/24 10:15 Respiratory Rate 16 12/29/24 10:13 Blood Pressure 131/76 12/29/24 10:15 Pulse Oximetry 97 12/29/24 10:15 Oxygen Delivery Me thod Room Air 12/29/24 10:15 MDM - Arrhythmia/Palpitations Medical Decision Making Patient presents here with what appears to be A-fib with RVR. I did give him amiodarone amiodarone drip along with Cardizem he did not convert he continue have heart rate into the 180s and is having some symptoms so did perform electrical cardioversion that was successful. His heart rates now in the 50s I did speak to hospitalist along with the mixing machine attendant Dr. Morris and will admit at this time. Medical Records I reviewed the patient's medical records. Lab Data I reviewed the patient's lab results. 12/29/24 08:45 12/29/24 08:45 Radiology Impressions Chest X-Ray 12/29/24 08:45 Impression: Atherosclerosis. Laboratory Results WBC 8.92 10^3/uL (3.29-11.43) 12/29/24 08:45 RBC 4.98 10^6/uL (3.85-5.65) 12/29/24 08:45 Hgb 14.50 g/dL (11.27-16.99) 12/29/24 08:45 Hct 44.5 % (37-53) 12/29/24 08:45 MCV 89.4 fl (82-101) 12/29/24 08:45 MCH 29.1 pg (27-33) 12/29/24 08:45 MCHC 32.6 g/dL (30-55) 12/29/24 08:45 RDW 14.0 % (12.1-15.1) 12/29/24 08:45 Plt Count 192 10^3/cmm (157-399) 12/29/24 08:45 MPV 11.9 fL (7.4-10.4) H 12/29/24 08:45 Neut % (Auto) 58.4 % 12/29/24 08:45 Lymph % (Auto) 27.4 % 12/29/24 08:45 [place] % (Auto) 11.0 % 12/29/24 08:45 Eos % (Auto) 2.2 % 12/29/24 08:45 Baso % (Auto) 0.7 % 12/29/24 08:45 Neut # (Auto) 5.21 10^3/uL (1.8-7.7) 12/29/24 08:45 Lymph # (Auto) 2.4 10^3/uL (0.8-4.8) 12/29/24 08:45 [place] # (Auto) 1.0 10^3/uL (0.2-0.9) H 12/29/24 08:45 Eos # (Auto) 0.2 10^3/uL (0.0-0.8) 12/29/24 08:45 Baso # (Auto) 0.1 10^3/uL (0.0-0.1) 12/29/24 08:45 Nucleated RBC % (auto) 0 % 12/29/24 08:45 Nucleated RBCs # 0.0 /100WBC 12/29/24 08:45 PT 14.80 SECONDS (12.1-14.9) 12/29/24 08:45 INR 1.08 (0.8-1.2) 12/29/24 08:45 Sodium 139 mmol/L (136-145) 12/29/24 08:45 Potassium 4.2 mmol/L (3.5-5.1) 12/29/24 08:45 Chloride 104 mmol/L (98-107) 12/29/24 08:45 Carbon Dioxide 19 mmol/L (22-29) L 12/29/24 08:45 Anion Gap 20.2 (5-19) H 12/29/24 08:45 BUN 40 mg/dL (8-23) H 12/29/24 08:45 Creatinine 2.0 mg/dL (0.7-1.2) H 12/29/24 08:45 GFR Calculation Not Reportable 12/29/24 08:45 Glucose 97 mg/dL (65-115) 12/29/24 08:45 Calculated Osmolality 298 mOsm/kg (285-295) H 12/29/24 08:45 Calcium 9.6 mg/dL (8.5-10.5) 12/29/24 08:45 Total Bilirubin 0.5 mg/dL (0.15-1.2) 12/29/24 08:45 AST 14 U/L (0-40) 12/29/24 08:45 ALT 10 U/L (0-41) 12/29/24 08:45 Alkaline Phosphatase 90 U/L (40-130) 12/29/24 08:45 Troponin T Baseline 19 ng/L (0-15) H 12/29/24 08:45 Troponin T 120 Minute 17.04 ng/L (0-15) H 12/29/24 10:26 Delta Troponin T -1.96 ABS# (0-10) L 12/29/24 10:26 Total Protein 7.2 g/dL (6.6-8.7) 12/29/24 08:45 Albumin 4.4 g/dL (3.5-5.2) 12/29/24 08:45 Globulin 2.8 g/dL (1.3-4.6) 12/29/24 08:45 All radiology interpretation(s) finalized by discharge EKG Data EKG 1: I personally reviewed and interpreted this EKG as follows: EKG interpretation date: 12/29/24 EKG interpretation time: 08:36 Interpretation: afib with rvr hr [address] elevation qrs 130 qtc 379 Other EKG comments: Chest X-Ray 12/29/24 08:45 Impression: Atherosclerosis. EKG 2: I personally reviewed and interpreted this EKG as follows: EKG interpretation date: 12/29/24 EKG interpretation time: 10:17 Interpretation: sinus renetta hr [address] or t wave abnormalities qrs 161 qtc 453 Other EKG comments: Chest X-Ray 12/29/24 08:45 Impression: Atherosclerosis. Critical Care Time Critical Care Time: Critical Care Time: Yes Total Critical Care Time: 40 Attestation: The high probability of a clinically significant, sudden or life threatening deterioration of the patient's cv system(s) required my full and direct attention, intervention and personal management. The critical care time is as shown. This time is in addition to time spent performing any reported procedures but includes the following: [x] Data and vital sign review and interpretation [x] Patient assessment, examination and intervention [x] Documentation [x] Medication orders and management Discharge Plan Discharge Patient Disposition: Admitted As Inpatient Clinical Impression: Atrial fibrillation with RVR Condition: Stable Coding Level of Care Code ED Accounts Adjustable Clerk for Liza Prabhakar
[2024-12-29] MEDS: dilTIAZem 5 mg/mL SDV 5 mL 10 MG IVP (09:44)
[2024-12-29] MEDS: morphine 4 mg/mL SDV 1 mL IVP (10:13)
[2024-12-29] MEDS: etomidate 2 mg/mL INJ SDV 10 mL 10 MG IVP (10:16)
--- NOTE | 2024-12-29 10:17 | ECG_ITS ---
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 Measurements Intervals [place] Rate: 58 P: 77 CA: 199 QRS: -46 QRSD: 161 T: 51 QT: 457 QTc: 450 Interpretive Statements SINUS BRADYCARDIA WITH OCCASIONAL SUPRAVENTRICULAR PREMATURE COMPLEXES LEFT AXIS DEVIATION [QRS AXIS < -30] RIGHT BUNDLE BRANCH BLOCK [120+ ms QRS DURATION, UPRIGHT V1, 40+ ms S IN I/aVL/V4/V5/V6] Compared to ECG 12/29/2024 08:36:26 Left-axis deviation now present Right bundle-branch block now present Atrial fibrillation no longer present Ventricular premature complex(es) no longer present Aberrant conduction of supraventricular beat(s) no longer present ST (T wave) deviation no longer present Electronically Signed On 12-30-2024 20:43:49 CDT by Yolanda Morris M.D. [email or web address] [id number]
--- NOTE | 2024-12-29 10:21 | PC.NURSE ---
Synchronized Cardioversion 200 j. shock delivered @1017. PT converted to NSR rate of 60.
[2024-12-29 10:53] LABS: Troponin 5 2HR 17.04 ng/L (0-15); Troponin 5 2HR Delta -1.96 ABS# (0-10)
--- NOTE | 2024-12-29 12:22 | PM.CONSULT ---
Providers/Reason For Consult Consulting Physician/Specialty*: ALLEN Morris MD/cardiology Reason for Consult*: Patient with atrial fibrillation rapid ventricular rate Requesting Physician: Dr. Carrion Attending Physician: Shailesh Carrion Primary Care Provider: Awais Lewis MD History of Present Illness History of Present Illness Jose Angel Ceja is a 74 year old male is being admitted to the hospital through the emergency room where he presented with complaints of palpitation, dizziness and sweating. He was thought to be in atrial fibrillation rapid ventricular rate. Initially was started on IV Cardizem which had not helped. Later on he was switched to IV amiodarone. He continued to be tachycardic. So for this reason, he underwent electrical cardioversion. Currently he is in sinus bradycardia. Cardiology consult is requested for further cardiac evaluation recommendations. This patient has a longstanding history of atrial fibrillation. He underwent radiofrequency ablation approximately 15 years ago at the [facility] in [place]. A year ago in September, he presented with a palpitation and dizziness at the hospital in [place]. He was told to have ventricular tachycardia. He was initially cardioverted and later on underwent VT ablation?. He was having brief episodes of palpitations since then. 2 weeks ago, he was seen in the emergency room of our hospital. He was found in atrial fibrillation with rapid ventricular rate. He was started on IV Cardizem which spontaneously converted the arrhythmia to sinus. He has an appointment to see the territory outside sales manager at the [facility] in [place] for possible repeat ablation. According the patient, he was on multiple antiarrhythmic drug for the fibrillation. Apparently none of the medications worked for him. Does not recall having had any side effects with these medications. He remember having had a? Stress test prior to VT ablation in [place]. He had an MRI of the heart sometime last year in [place]. Details are not available Patient has a longtime history of hypertension. No diabetes. Questionable history of dyslipidemia. No severe peripheral artery disease. He was told to have heart failure with preserved ejection fraction by the hogshead inspector in [place]. He was placed on losartan and Jardiance. He has a history of chronic kidney disease. No history for atherosclerotic heart disease. No fever, chills or cough. He has a history of obstructive sleep apnea and is on CPAP. Has been compliant with this. Has a remote history of smoking abuse. No alcohol abuse or any substance abuse. His older brother had heart attacks and possible arrhythmia. His father and grandfather had cardiac arrhythmias. Details are not available. Review of Systems Narrative: CONSTITUTIONAL: No fever or chills. EYES: No blurring of vision or other visual disturbances lately. ENT: No hoarseness of voice, auditory disturbances or sore throat. CARDIOVASCULAR: As mentioned above. RESPIRATORY: History of sleep apnea and is on CPAP GASTROINTESTINAL: No hematemesis or melena. GENITOURINARY: No dysuria or hematuria. INTEGUMENTARY: No skin rashes or history of skin cancer. NEURO: No transient ischemic attacks or amaurosis. PSYCHIATRIC: No history of psychosis or major depression. HEMATOLOGIC: No bleeding disorders or significant anemia. ENDOCRINE: No history of polyuria or polydipsia. MUSCULOSKELETAL: No recent joint pain or swelling. ALLERGY/IMMUNOLOGY: As mentioned above. Medications/Allergies Home Medications ?Medication ?Instructions ?Recorded ?Confirmed ?Last Taken ?Type cetirizine 10 mg capsule 10 mg PO DAILY PRN allergies 10/24/19 12/29/24 12/29/24 History glucosamine HCl 1,500 mg tablet 1,500 mg PO BID 10/24/19 12/29/24 12/29/24 08:00 History multivitamin 1 tab PO DAILY 10/24/19 12/29/24 12/28/24 19:00 History fluticasone propionate 50 1 spray intranasal DAILY PRN 09/26/21 12/29/24 Unknown History mcg/actuation nasal allergies spray,suspension magnesium oxide 400 mg (241.3 mg 400 mg PO DAILY 12/10/21 12/29/24 12/28/24 History magnesium) tablet (MagOx) spironolactone 25 mg tablet 25 mg PO DAILY 09/22/24 12/29/24 12/29/24 08:00 History amlodipine 10 mg tablet 10 mg PO DAILY 12/13/24 12/29/24 12/29/24 08:00 History ammonium lactate 12 % topical cream 1 applic topical DAILY PRN Dry Skin 12/13/24 12/29/24 Unknown History empagliflozin 10 mg tablet 10 mg PO DAILY 12/13/24 12/29/24 12/29/24 08:00 History (Jardiance) losartan 25 mg tablet 25 mg PO DAILY 12/13/24 12/29/24 12/29/24 08:10 History metoprolol succinate 25 mg 25 mg PO DAILY 12/13/24 12/29/24 12/29/24 History tablet,extended release 24 hr potassium chloride 20 mEq 20 meq PO DAILY 12/13/24 12/29/24 12/28/24 19:00 History tablet,extended release(part/cryst) tizanidine 4 mg capsule 4 mg PO .QHS PRN muscle spasticity 12/13/24 12/29/24 Unknown History apixaban 5 mg tablet (Eliquis) 5 mg PO BID 12/29/24 12/29/24 12/29/24 08:00 History diltiazem HCl 30 mg tablet 30 mg PO Q6H PRN elevated heart 12/29/24 12/29/24 12/29/24 03:00 History rate miconazole nitrate 2 % topical See Rx Instructions .Route .COMPLEX 12/29/24 12/29/24 Unknown History powder (Desenex) bumetanide 1 mg tablet 1 mg PO DAILY PRN Edema #1 tab 12/30/24 12/29/24 12/29/24 08:00 Rx Allergies Allergy/AdvReac Type Severity Reaction Status Date / Time codeine Allergy Unknown Unknown Verified 02/24/23 13:46 hydrocodone (From Vicodin) Allergy Unknown Unknown Verified 02/24/23 13:46 lisinopril Allergy Unknown Unknown Verified 02/24/23 13:46 PAWAN Inhibitors Allergy Unknown Verified 02/24/23 13:46 Current Medications Generic Name Dose Route Start Last Admin Trade Name Freq PRN Reason Stop Dose Admin AMIODARONE HCL/D5W 900 mg in 500 mls @ 0 mls/hr 12/29/24 09:00 12/29/24 09:11 Amiodarone 900 Mg/500 Ml-D5w IV 1 mg/min .Q0M SOPHIE 33.33 mls/hr Protocol Administration Per Protocol PFSH Acute PFSH: Medical History Chronic heart failure with preserved ejection fraction (HFpEF) V-tach History of prostate cancer Diverticulosis with hx of diverticulitis Chronic sinusitis with periodic acute infections SRINATH on CPAP compliant Bilateral renal stones Multi stone former requiring multiple procedures over years. Residual small stones bilaterally with rare symptoms on follow-up Hx of urethral stricture Status post extracorporeal shock wave therapy HTN (hypertension) Afib hx of ablation GERD (gastroesophageal reflux disease) Acquired bladder neck obstruction Surgical History History of radiofrequency ablation procedure for cardiac arrhythmia Hx of radical retropubic prostatectomy Family History Father , at age 90 Stroke Mother , at age 86 Parkinson disease Other CAD (coronary artery disease) Cancer Hypertension Social History Smoking and tobacco/nicotine status: never used tobacco/nicotine Alcohol intake: current Alcohol intake frequency: few times a month Substance/Drug Use: never Lives independently: No Household members: spouse Marital status: Current occupational status: retired Vitals/I&O/Wt Last Vital Signs Pulse 46 L 12/29/24 12:00 Resp 16 12/29/24 12:00 BP 101/62 12/29/24 11:40 Pulse Ox 97 12/29/24 11:40 O2 Del Method Room Air 12/29/24 10:15 O2 Flow Rate 2 12/29/24 11:40 Weight last 48 hrs Weight 258 lb Physical Exam Narrative: GENERAL: The patient is alert and oriented times three. Not in any acute distress. Obese HEENT: No significant pallor, icterus or lymphadenopathy.Oral cavity: There are no mucous membrane lesions. NECK: Trachea appears to be central. No masses noted. No JVD or thyromegaly appreciated. RESPIRATORY: Chest is symmetrical. No intercostals muscle retraction or any accessory muscle activation. There is no chest wall tenderness. Breath sounds are heard bilaterally. No rales or rhonchi heard. No evidence of any consolidation. BREASTS: Deferred. HEART: The heart sounds are normal. No S3 or S4. No significant murmurs. No pericardial rub ABDOMEN: No vessel pulsations or distention. No tenderness. No organomegaly appreciated. Bowel sounds are normally heard. : Deferred. RECTAL: Deferred. LYMPHATIC: No lymphadenopathy noted in the neck. EXTREMITIES: 1+ edema both lower extremities. No cyanosis. Peripheral pulses are palpable but somewhat weak. MUSCULOSKELETAL: No acute joint deformities or swelling SKIN: There are no significant rashes or ecchymosis NEUROPSYCHIATRIC: The patient is alert and oriented x3. Appears to be in a good mood. No tremors or rigidity noted. Data 12/29/24 08:45 12/30/24 03:33 Other Labs: Laboratory Last Values WBC 8.92 10^3/uL (3.29-11.43) 12/29/24 08:45 RBC 4.98 10^6/uL (3.85-5.65) 12/29/24 08:45 Hgb 14.50 g/dL (11.27-16.99) 12/29/24 08:45 Hct 44.5 % (37-53) 12/29/24 08:45 MCV 89.4 fl (82-101) 12/29/24 08:45 MCH 29.1 pg (27-33) 12/29/24 08:45 MCHC 32.6 g/dL (30-55) 12/29/24 08:45 RDW 14.0 % (12.1-15.1) 12/29/24 08:45 Plt Count 192 10^3/cmm (157-399) 12/29/24 08:45 MPV 11.9 fL (7.4-10.4) H 12/29/24 08:45 Neut % (Auto) 58.4 % 12/29/24 08:45 Lymph % (Auto) 27.4 % 12/29/24 08:45 [place] % (Auto) 11.0 % 12/29/24 08:45 Eos % (Auto) 2.2 % 12/29/24 08:45 Baso % (Auto) 0.7 % 12/29/24 08:45 Neut # (Auto) 5.21 10^3/uL (1.8-7.7) 12/29/24 08:45 Lymph # (Auto) 2.4 10^3/uL (0.8-4.8) 12/29/24 08:45 [place] # (Auto) 1.0 10^3/uL (0.2-0.9) H 12/29/24 08:45 Eos # (Auto) 0.2 10^3/uL (0.0-0.8) 12/29/24 08:45 Baso # (Auto) 0.1 10^3/uL (0.0-0.1) 12/29/24 08:45 Nucleated RBC % (auto) 0 % 12/29/24 08:45 Nucleated RBCs # 0.0 /100WBC 12/29/24 08:45 PT 14.80 SECONDS (12.1-14.9) 12/29/24 08:45 INR 1.08 (0.8-1.2) 12/29/24 08:45 Sodium 139 mmol/L (136-145) 12/29/24 08:45 Potassium 4.2 mmol/L (3.5-5.1) 12/29/24 08:45 Chloride 104 mmol/L (98-107) 12/29/24 08:45 Carbon Dioxide 19 mmol/L (22-29) L 12/29/24 08:45 Anion Gap 20.2 (5-19) H 12/29/24 08:45 BUN 40 mg/dL (8-23) H 12/29/24 08:45 Creatinine 2.0 mg/dL (0.7-1.2) H 12/29/24 08:45 GFR Calculation Not Reportable 12/29/24 08:45 Glucose 97 mg/dL (65-115) 12/29/24 08:45 Calculated Osmolality 298 mOsm/kg (285-295) H 12/29/24 08:45 Calcium 9.6 mg/dL (8.5-10.5) 12/29/24 08:45 Total Bilirubin 0.5 mg/dL (0.15-1.2) 12/29/24 08:45 AST 14 U/L (0-40) 12/29/24 08:45 ALT 10 U/L (0-41) 12/29/24 08:45 Alkaline Phosphatase 90 U/L (40-130) 12/29/24 08:45 Troponin T Baseline 19 ng/L (0-15) H 12/29/24 08:45 Troponin T 120 Minute 17.04 ng/L (0-15) H 12/29/24 10:26 Delta Troponin T -1.96 ABS# (0-10) L 12/29/24 10:26 Total Protein 7.2 g/dL (6.6-8.7) 12/29/24 08:45 Albumin 4.4 g/dL (3.5-5.2) 12/29/24 08:45 Globulin 2.8 g/dL (1.3-4.6) 12/29/24 08:45 A&P Assessment and plan 1. Supraventricular tachycardia: Patient appears to have atrial flutter/ long RP tachycardia. Currently he is back into sinus bradycardia. I may hold off on amiodarone for the time being 2. Paroxysmal atrial fibrillation with rapid ventricular response: Patient had RF ablation in the past. He is on long-term oral anticoagulation. This may be continued. He is planning to have repeat ablation. 3. Primary hypertension: Currently normotensive. May continue current medication. 4. Acute heart failure with preserved ejection fraction (HFpEF): Possibly due to the tachyarrhythmia. Patient may be carefully treated with IV diuretics. 5. V-tach: Patient has a history of ventricular tachycardia and ablation. Plan: Patient will closely monitor on telemetry. Limited 2D echocardiogram to evaluate LV function and rule out any other pathology. Also may do a BNP. I will be discussing with Dr. Murillo, the territory outside sales manager in [place] regarding the patient's condition. If he is going to have EP studies, it may be appropriate to hold off on any antiarrhythmics at this time. However because of his recurrent ER visits, need to expedite the EP studies Based on the patient's the clinical progress and results of echo, further recommendations will be made Thank for the opportunity to evaluate this patient and make this recommendation Thank you for the opportunity to evaluate this patient and make these recommendations PDMP PDMP Reviewed: Not Reviewed Coding Level of Care Code 41210 Diagnoses Supraventricular tachycardia I47.10 Paroxysmal atrial fibrillation with rapid ventricular response I48.0 Primary hypertension I10 Hypertension type: primary hypertension Acute heart failure with preserved ejection fraction (HFpEF) I50.31 Heart failure chronicity: acute V-tach I47.20
--- NOTE | 2024-12-29 13:35 | PC.NURSE ---
AMIODARONE PAUSED VERBAL ORDER FROM DR DÍAZ.
--- NOTE | 2024-12-29 14:18 | PM.HP ---
Providers/Chief Complaint Admitting Physician: Shailesh Carrion Primary Care Provider: Awais Lewis MD Chief Complaint: chest pain History of Present Illness Jose Angel Ceja is a 74 year old gentleman with a history of ventricular tachycardia (status post radiofrequency ablation, follows with electrophysiology in [place]), atrial fibrillation on anticoagulation (apixaban), obstructive sleep apnea on continuous positive airway pressure (CPAP), hypertension, gastroesophageal reflux disease (GERD), nephrolithiasis, and chronic heart failure with preserved ejection fraction (HFpEF). Presents to the emergency department for palpitations/arrhythmia. He was recently hospitalized about a month ago for atrial fibrillation with rapid ventricular response, for which he received diltiazem and converted. This morning developed tachycardia with heart rates reported up to the 180s and was found to have a wide complex tachycardia, suspected atrial fibrillation with aberrant conduction. He received amiodarone and diltiazem without improvement, then underwent direct-current cardioversion with conversion to sinus bradycardia (heart rate in the 50s). Currently on an amiodarone drip initially; hospital observation requested with cardiology consultation. Reports chest pain and sweating with the arrhythmia episodes, as well as fluid retention and shortness of breath related to his heart condition. Denies recent fever, chills, sore throat, runny nose, sneezing, cough, nausea, vomiting, diarrhea, or persistent chest pressure outside the episodes. Notes leg swelling and fluid retention; diuretics were recently adjusted. States kidney function has been ?running a bit high,? and he avoids nonsteroidal anti-inflammatory drugs (NSAIDs). Oxygen was placed before cardioversion; oxygen saturation has been running fine. Code status discussion held; he would be ok with attempted resuscitation but prefers to avoid ?heroic? measures if unlikely to be effective. Electrophysiology team is arranging follow-up; cardiology has evaluated him in the ED. Review of Systems Const: Denies: fever(s), chills, body aches or malaise ENMT: Denies: throat pain Card: Reports: chest pain (Chest pressure with episode); Denies: edema, pre-syncope or dyspnea on exertion Resp: Denies: dyspnea, productive cough, change in phlegm color or hemoptysis GI: Denies: abdominal pain, nausea, vomiting, diarrhea, constipation, hematochezia or melena : Denies: flank pain, difficulty urinating, urinary frequency or hematuria Musc: Denies: back pain, joint swelling or joint redness Skin/Breast: Denies: rash or new lesions Neuro: Denies: headache(s) or confusion Medications/Allergies Home Medications ?Medication ?Instructions ?Recorded ?Confirmed ?Last Taken ?Type cetirizine 10 mg capsule 10 mg PO DAILY PRN allergies 10/24/19 12/29/24 12/29/24 History glucosamine HCl 1,500 mg tablet 1,500 mg PO BID 10/24/19 12/29/24 12/29/24 08:00 History multivitamin 1 tab PO DAILY 10/24/19 12/29/24 12/28/24 19:00 History fluticasone propionate 50 1 spray intranasal DAILY PRN 09/26/21 12/29/24 Unknown History mcg/actuation nasal allergies spray,suspension magnesium oxide 400 mg (241.3 mg 400 mg PO DAILY 12/10/21 12/29/24 12/28/24 History magnesium) tablet (MagOx) bumetanide 1 mg tablet 1 mg PO DAILY 09/22/24 12/29/24 12/29/24 08:00 History spironolactone 25 mg tablet 25 mg PO DAILY 09/22/24 12/29/24 12/29/24 08:00 History amlodipine 10 mg tablet 10 mg PO DAILY 12/13/24 12/29/24 12/29/24 08:00 History ammonium lactate 12 % topical cream 1 applic topical DAILY PRN Dry Skin 12/13/24 12/29/24 Unknown History empagliflozin 10 mg tablet 10 mg PO DAILY 12/13/24 12/29/24 12/29/24 08:00 History (Jardiance) losartan 25 mg tablet 25 mg PO DAILY 12/13/24 12/29/24 12/29/24 08:10 History metoprolol succinate 25 mg 25 mg PO DAILY 12/13/24 12/29/24 12/29/24 History tablet,extended release 24 hr potassium chloride 20 mEq 20 meq PO DAILY 12/13/24 12/29/24 12/28/24 19:00 History tablet,extended release(part/cryst) tizanidine 4 mg capsule 4 mg PO .QHS PRN muscle spasticity 12/13/24 12/29/24 Unknown History apixaban 5 mg tablet (Eliquis) 5 mg PO BID 12/29/24 12/29/24 12/29/24 08:00 History diltiazem HCl 30 mg tablet 30 mg PO Q6H PRN elevated heart 12/29/24 12/29/24 12/29/24 03:00 History rate miconazole nitrate 2 % topical See Rx Instructions .Route .COMPLEX 12/29/24 12/29/24 Unknown History powder (Desenex) Allergies Allergy/AdvReac Type Severity Reaction Status Date / Time codeine Allergy Unknown Unknown Verified 02/24/23 13:46 hydrocodone (From Vicodin) Allergy Unknown Unknown Verified 02/24/23 13:46 lisinopril Allergy Unknown Unknown Verified 02/24/23 13:46 PAWAN Inhibitors Allergy Unknown Verified 02/24/23 13:46 PFSH Acute PFSH: Medical History V-tach History of prostate cancer Diverticulosis with hx of diverticulitis Chronic sinusitis with periodic acute infections SRINATH on CPAP compliant Bilateral renal stones Multi stone former requiring multiple procedures over years. Residual small stones bilaterally with rare symptoms on follow-up Hx of urethral stricture Status post extracorporeal shock wave therapy HTN (hypertension) Afib hx of ablation GERD (gastroesophageal reflux disease) Acquired bladder neck obstruction Surgical History History of radiofrequency ablation procedure for cardiac arrhythmia Hx of radical retropubic prostatectomy Family History Father , at age 90 Stroke Mother , at age 86 Parkinson disease Other CAD (coronary artery disease) Cancer Hypertension Social History Smoking and tobacco/nicotine status: never used tobacco/nicotine Alcohol intake: current Alcohol intake frequency: few times a month Substance/Drug Use: never Lives independently: No Household members: spouse Marital status: Current occupational status: retired Vitals/I&O/Wt Last Vital Signs Pulse 46 L 12/29/24 13:00 Resp 16 12/29/24 13:00 BP 101/68 12/29/24 13:00 Pulse Ox 98 12/29/24 13:00 O2 Del Method Room Air 12/29/24 10:15 O2 Flow Rate 2 12/29/24 12:40 12/28/24 12/29/24 12/29/24 22:59 06:59 14:59 Intake Total 146.096 / 146.096 Balance 146.096 / 146.096 Weight last 48 hrs Weight 117.027 kg Physical Exam Const: COMMON NORMALS: patient oriented x3 and alert GENERAL APPEARANCE: cooperative ORIENTATION/CONSCIOUSNESS: Yes awake HENMT: COMMON NORMALS: oropharynx normal Neck/C-Spine: COMMON NORMALS: no JVD Resp: COMMON NORMALS: normal respiratory effort and clear to auscultation bilaterally AUSCULTATION: clear to auscultation bilaterally Cardio: COMMON NORMALS: no JVD, regular rhythm, S1 normal heart sound present, S2 normal heart sound present and No murmurs present (Cardio) RHYTHM: regular rhythm HEART SOUNDS: S1 normal heart sound present and S2 normal heart sound present GI: COMMON NORMALS: Normal to inspection, nondistended, normoactive bowel sounds present, Soft to palpation and non-tender PALPATION: Yes Soft to palpation Extremity: COMMON NORMALS: no joint enlargement and no pedal edema Neuro: COMMON NORMALS: patient oriented x3 and moves all extremities SENSORIUM/ORIENTATION: Yes alert Skin: COMMON NORMALS: no rashes or lesions noted GENERAL SKIN EXAM: no rashes or lesions noted Data 12/29/24 08:45 12/29/24 08:45 A&P Assessment and plan 1. Atrial fibrillation with RVR: ED course notable for wide complex tachycardia suspected AFib with aberrant conduction; amiodarone and diltiazem given without improvement; successfully cardioverted to sinus bradycardia; currently under observation with cardiology involvement.Reviewed vitals, CBC, INR, CMP, troponin, EKG, with sinus bradycardia, RBBB on my interpretation, pending official read. Reviewed chest x-ray, reviewed ED provider note, discussed with ED provider. - Hospital observation requested - Cardiology consultation requested - Continuing telemetry monitoring - Hold off further amiodarone - Continue diltiazem (Cardizem) as needed - Follow-up cardiology recommendations - Continue arrangements for follow-up with electrophysiology for repeat ablation - Check magnesium Wide complex tachycardia : Initial ED rhythm description; suspected AFib with aberrancy. 2. Sinus bradycardia: Post-cardioversion rhythm; heart rate low 40s?50s. - Monitor for worsening bradycardia on telemetry 3. Acute kidney injury superimposed on CKD: reatinine 2.0 mg/dL today; baseline reportedly ~1.3?1.8 mg/dL; BUN 40 mg/dL. - Reassess kidney function - Obtain kidney ultrasound - Hold bumetanide for now - Hold losartan - Monitor intake and output 4. Chronic heart failure with preserved ejection fraction (HFpEF): Chronic condition; reports fluid retention and dyspnea; on diuretics and SGLT2 inhibitor as outpatient. Plan: Lower extremity edema/fluid retention : Ongoing issue associated with heart condition; recent medication adjustments. - Monitor intake and output Shortness of breath : Related to heart condition; no acute hypoxemia reported. Hypertension : Chronic condition; on multiple agents as outpatient. Obstructive sleep apnea : Uses CPAP at night. - Use CPAP at night (patient?s device to be brought in) Follow-up : Care coordination and disposition planning discussed. - Follow-up cardiology recommendations - Continue arrangements for follow-up with electrophysiology for repeat ablation PDMP PDMP Reviewed: Not Reviewed Attestations Medical Necessity Statement*: Place observation for additional assessment management after A-fib with RVR requiring cardioversion, TERRELL on CKD, and gentleman with underlying HFpEF, additional comorbidities. and High MDM includes amount and/or complexity of data reviewed/ordered [ previous or external records, resulted lab(s)/test(s), ordered lab(s)/test(s) and other healthcare professional discussion] and described risk of complication, morbidity or mortality of management as documented Diagnoses Atrial fibrillation with RVR I48.91 Sinus bradycardia R00.1 Acute kidney injury superimposed on CKD N17.9; N18.9 Chronic heart failure with preserved ejection fraction (HFpEF) I50.32
--- NOTE | 2024-12-29 14:41 | ECG_ITS ---
[facility] Test Date: 2024-12-29 Pat Name: Jose Angel Ceja Department: Room: 103 Gender: Male [employer] Director: : 1950 Requested By: Oswaldo Em Order Number: [id number] Mitchel MD: Yolanda Morris M.D. Measurements Intervals Hugo Rate: 45 P: 83 LA: 202 QRS: -14 QRSD: 158 T: 42 QT: 521 QTc: 452 Interpretive Statements SINUS BRADYCARDIA RIGHT BUNDLE BRANCH BLOCK [120+ ms QRS DURATION, UPRIGHT V1, 40+ ms S IN I/aVL/V4/V5/V6] Compared to ECG 12/29/2024 10:17:03 Left-axis deviation no longer present Electronically Signed On 12-30-2024 20:32:51 CDT by Yolanda Morris M.D. [email or web address]
[2024-12-29 15:28] LABS: Magnesium 2.4 mg/dL (1.7-2.3)
--- NOTE | 2024-12-29 16:17 | USCV_ITS ---
Marcial Jose Angel Age: 74 Gender: M : 1950 Exam Date: 12/29/2024 16:37 Ordering Phys: Yolanda Morris MD ([email or web address]) Technologist: SANTIAGO Exam Location: [facility] [place]ication: CHF, SVT BP: 125 / 69 HR: Rhythm: Sinus Technical Quality: Adequate MEASUREMENTS (Male / Female) Normal Values 2D ECHO LVOT Diameter 2.0 cm LV Ejection Fraction MOD 4C 51.0 % LV Ejection Fraction MOD 2C 56.7 % LV Ejection Fraction 2C AL 58.9 % LA Diameter 4.3 cm RA Systolic Volume 4C AL 61.4 ml RA Systolic Volume 4C MOD 59.3 ml LA Sys Volume AL 70.0 cm cubed LA Sys Volume Index AL 28.1 cm cubed/m squared Aorta at Sinotubular Diameter 2.3 cm FINDINGS Left Ventricle Normal LV size ejection fraction of 58%.no regional wall motion abnormalities. Mild left ventricular hypertrophy. Right Ventricle Normal right ventricular size and systolic function. Right Atrium Normal right atrial size. Left Atrium Normal left atrial size. Mitral Valve Thickened mitral valve. Aortic Valve Thickened aortic valve. Tricuspid Valve No gross abnormalities noted Pulmonic Valve Pulmonic valve not well visualized. Pericardium No pericardial effusion. Aorta Normal aortic annulus size. IVC Inferior vena cava not visualized. CONCLUSIONS Normal LV size ejection fraction of 58%.no regional wall motion abnormalities. Mild left ventricular hypertrophy. Normal cardiac chamber sizes. There is no pericardial effusion. There are no intracardiac masses. Minimally thickened aortic and mitral valves. No similar previous studies are available for comparison Dr Yolanda Morris MD FACC (Electronically Signed) Final Date: 29 December 2024 19:56 S
[2024-12-29 16:52] LABS: Troponin 5 6HR 36.62 ng/L (0-15)
[2024-12-29 16:54] LABS: Troponin 5 6HR Delta 17.62 ng/L (0-12)
[2024-12-29 17:05] LABS: NT Pro B Type Natriuretic Pept 158 pg/mL (0-125)
[2024-12-30 00:12] VITALS: BP 119/60; PULSE 53; O2SAT 92
[2024-12-30 05:06] LABS: Alanine Aminotransferase 9 U/L (0-41); Albumin Level 3.6 g/dL (3.5-5.2); Alkaline Phosphatase 71 U/L (40-130); Aspartate Amino Transferase 12 U/L (0-40); Blood Urea Nitrogen 39 mg/dL (8-23); Calcium 8.8 mg/dL (8.5-10.5); Carbon Dioxide 19 mmol/L (22-29); Chloride 110 mmol/L (98-107); Creatinine Clr Calc Pharmacy 48.9838; Globulin 2.6 g/dL (1.3-4.6); Glucose 102 mg/dL (65-115); Osmolality Calculated 304 mOsm/kg (285-295); Sodium 142 mmol/L (136-145); Total Protein 6.2 g/dL (6.6-8.7)
[2024-12-30 05:14] LABS: Anion Gap 17.5 (5-19); Potassium 4.5 mmol/L (3.5-5.1)
[2024-12-30 05:21] VITALS: BP 124/61; PULSE 51; TEMP 36.9
[2024-12-30 07:36] VITALS: BP 121/68; PULSE 55; RESP 17; TEMP 36.6
[2024-12-30] MEDS: metoprolol succinate ER (24 HR) 25 mg Tablet PO (09:01)
--- NOTE | 2024-12-30 09:08 | PM.DCS ---
Discharge Providers Date of Admission: 12/29/24 12:13 Date of Discharge: December 30, 2024 Attending Provider at Admission: Shailesh Carrion Attending Provider at Discharge: Shailesh Carrion Primary Care Provider: Awais Lewis MD Diagnoses at Discharge Discharge Diagnosis 1. Supraventricular tachycardia: 2. Paroxysmal atrial fibrillation with rapid ventricular response: 3. Primary hypertension: 4. Acute heart failure with preserved ejection fraction (HFpEF): 5. V-tach: Reason for Visit Reason for Visit: chest pain Brief History: Jose Angel Ceja is a 74 year old gentleman with a history of ventricular tachycardia (status post radiofrequency ablation, follows with electrophysiology in [place]), atrial fibrillation on anticoagulation (apixaban), obstructive sleep apnea on continuous positive airway pressure (CPAP), hypertension, gastroesophageal reflux disease (GERD), nephrolithiasis, and chronic heart failure with preserved ejection fraction (HFpEF). Presents to the emergency department for palpitations/arrhythmia. He was recently hospitalized about a month ago for atrial fibrillation with rapid ventricular response, for which he received diltiazem and converted. This morning developed tachycardia with heart rates reported up to the 180s and was found to have a wide complex tachycardia, suspected atrial fibrillation with aberrant conduction. He received amiodarone and diltiazem without improvement, then underwent direct-current cardioversion with conversion to sinus bradycardia (heart rate in the 50s). Currently on an amiodarone drip initially; hospital observation requested with cardiology consultation. Reports chest pain and sweating with the arrhythmia episodes, as well as fluid retention and shortness of breath related to his heart condition. Denies recent fever, chills, sore throat, runny nose, sneezing, cough, nausea, vomiting, diarrhea, or persistent chest pressure outside the episodes. Notes leg swelling and fluid retention; diuretics were recently adjusted. States kidney function has been ?running a bit high,? and he avoids nonsteroidal anti-inflammatory drugs (NSAIDs). Oxygen was placed before cardioversion; oxygen saturation has been running fine. Code status discussion held; he would be ok with attempted resuscitation but prefers to avoid ?heroic? measures if unlikely to be effective. Electrophysiology team is arranging follow-up; cardiology has evaluated him in the ED. Hospital Course Hospital Course He was further monitored on telemetry with amiodarone discontinued due to bradycardia. He had no further recurrence of SVT. Limited echocardiogram was obtained with noted EF 58% without regional wall motion abnormality. Mild LVH. Renal function was reassessed due to TERRELL. Bumex was held due to mild dehydration, and is switched to as needed for now. Please reassess renal function, volume status, consider safety/timing of resumption of scheduled diuretic. He was seen by our offset press operator apprentice who further discussed with his traffic incident management manager and for now due to arrangements for expedited EP study he will continue on only metoprolol as before hospitalization. He does know to seek medical attention in case of any recurrence or any other worsening or new concerning symptoms. Physical Exam Narrative: Accompanied by his . Could not sleep well overnight in the hospital but otherwise doing well. Const: COMMON NORMALS: patient oriented x3 and alert GENERAL APPEARANCE: cooperative ORIENTATION/CONSCIOUSNESS: Yes awake HENMT: COMMON NORMALS: oropharynx normal Neck/C-Spine: COMMON NORMALS: no JVD Resp: COMMON NORMALS: normal respiratory effort and clear to auscultation bilaterally AUSCULTATION: clear to auscultation bilaterally Cardio: COMMON NORMALS: no JVD, regular rhythm, S1 normal heart sound present, S2 normal heart sound present and No murmurs present (Cardio) RHYTHM: regular rhythm HEART SOUNDS: S1 normal heart sound present and S2 normal heart sound present GI: COMMON NORMALS: Normal to inspection, nondistended, normoactive bowel sounds present, Soft to palpation and non-tender PALPATION: Yes Soft to palpation Extremity: COMMON NORMALS: no joint enlargement and no pedal edema (Trace if any edema) Neuro: COMMON NORMALS: patient oriented x3 and moves all extremities SENSORIUM/ORIENTATION: Yes alert Skin: COMMON NORMALS: no rashes or lesions noted GENERAL SKIN EXAM: no rashes or lesions noted Discharge Data Studies Completed and Pending Completed Studies During Hospitalization Category Date Time Status XR chest 1V portable [id number] Stat Exams 12/29/24 08:45 Completed US echo limited [CV. echo limited 00319] Routine Ultrasound 12/29/24 16:17 Completed Pending at discharge Category Date Time Status Comprehensive Metabolic Panel AM LABS Lab 12/31/24 04:00 Ordered Comprehensive Metabolic Panel AM LABS Lab 01/01/25 04:00 Ordered Radiology Impressions Chest X-Ray 12/29/24 08:45 Impression: Atherosclerosis. Laboratory Results WBC 8.92 10^3/uL (3.29-11.43) 12/29/24 08:45 RBC 4.98 10^6/uL (3.85-5.65) 12/29/24 08:45 Hgb 14.50 g/dL (11.27-16.99) 12/29/24 08:45 Hct 44.5 % (37-53) 12/29/24 08:45 MCV 89.4 fl (82-101) 12/29/24 08:45 MCH 29.1 pg (27-33) 12/29/24 08:45 MCHC 32.6 g/dL (30-55) 12/29/24 08:45 RDW 14.0 % (12.1-15.1) 12/29/24 08:45 Plt Count 192 10^3/cmm (157-399) 12/29/24 08:45 MPV 11.9 fL (7.4-10.4) H 12/29/24 08:45 Neut % (Auto) 58.4 % 12/29/24 08:45 Lymph % (Auto) 27.4 % 12/29/24 08:45 [place] % (Auto) 11.0 % 12/29/24 08:45 Eos % (Auto) 2.2 % 12/29/24 08:45 Baso % (Auto) 0.7 % 12/29/24 08:45 Neut # (Auto) 5.21 10^3/uL (1.8-7.7) 12/29/24 08:45 Lymph # (Auto) 2.4 10^3/uL (0.8-4.8) 12/29/24 08:45 [place] # (Auto) 1.0 10^3/uL (0.2-0.9) H 12/29/24 08:45 Eos # (Auto) 0.2 10^3/uL (0.0-0.8) 12/29/24 08:45 Baso # (Auto) 0.1 10^3/uL (0.0-0.1) 12/29/24 08:45 Nucleated RBC % (auto) 0 % 12/29/24 08:45 Nucleated RBCs # 0.0 /100WBC 12/29/24 08:45 PT 14.80 SECONDS (12.1-14.9) 12/29/24 08:45 INR 1.08 (0.8-1.2) 12/29/24 08:45 Sodium 142 mmol/L (136-145) 12/30/24 03:33 Potassium 4.5 mmol/L (3.5-5.1) 12/30/24 03:33 Chloride 110 mmol/L (98-107) H 12/30/24 03:33 Carbon Dioxide 19 mmol/L (22-29) L 12/30/24 03:33 Anion Gap 17.5 (5-19) 12/30/24 03:33 BUN 39 mg/dL (8-23) H 12/30/24 03:33 Creatinine 1.8 mg/dL (0.7-1.2) H 12/30/24 03:33 GFR Calculation Not Reportable 12/30/24 03:33 Glucose 102 mg/dL (65-115) 12/30/24 03:33 Calculated Osmolality 304 mOsm/kg (285-295) H 12/30/24 03:33 Calcium 8.8 mg/dL (8.5-10.5) 12/30/24 03:33 Magnesium 2.4 mg/dL (1.7-2.3) H 12/29/24 10:26 Total Bilirubin 0.3 mg/dL (0.15-1.2) 12/30/24 03:33 AST 12 U/L (0-40) 12/30/24 03:33 ALT 9 U/L (0-41) 12/30/24 03:33 Alkaline Phosphatase 71 U/L (40-130) 12/30/24 03:33 Troponin T Baseline 19 ng/L (0-15) H 12/29/24 08:45 Troponin T 120 Minute 17.04 ng/L (0-15) H 12/29/24 10:26 Delta Troponin T -1.96 ABS# (0-10) L 12/29/24 10:26 Troponin T Hi Sens 6Hr 36.62 ng/L (0-15) H 12/29/24 15:43 Troponin T Hi Sens 6Hr Delta 17.62 ng/L (0-12) H* 12/29/24 15:43 NT-Pro-B Natriuret Pep 158 pg/mL (0-125) H 12/29/24 08:45 Total Protein 6.2 g/dL (6.6-8.7) L 12/30/24 03:33 Albumin 3.6 g/dL (3.5-5.2) 12/30/24 03:33 Globulin 2.6 g/dL (1.3-4.6) 12/30/24 03:33 Vitals Last Vital Signs Temp 97.9 F 12/30/24 07:36 Pulse 55 L 12/30/24 07:36 Resp 17 12/30/24 07:36 BP 121/68 12/30/24 07:36 Pulse Ox 92 12/30/24 00:12 O2 Del Method Room Air 12/29/24 17:32 O2 Flow Rate 2 12/29/24 12:40 Discharge Plan Discharge Patient Disposition: Home Condition: Stable Prescriptions: Continued cetirizine 10 mg capsule 10 mg PO DAILY PRN (Reason: allergies) glucosamine HCl 1,500 mg tablet 1,500 mg PO BID Rx Instructions: administer with a meal multivitamin Tablet 1 tab PO DAILY fluticasone propionate 50 mcg/actuation spray,suspension 1 spray intranasal DAILY PRN (Reason: allergies) Rx Instructions: administer into each nostril magnesium oxide [MagOx] 400 mg (241.3 mg magnesium) tablet 400 mg PO DAILY spironolactone 25 mg tablet 25 mg PO DAILY losartan 25 mg tablet 25 mg PO DAILY Jardiance 10 mg tablet 10 mg PO DAILY potassium chloride 20 mEq tablet,ER particles/crystals 20 meq PO DAILY amlodipine 10 mg tablet 10 mg PO DAILY ammonium lactate 12 % cream 1 applic topical DAILY PRN (Reason: Dry Skin) metoprolol succinate 25 mg tablet extended release 24 hr 25 mg PO DAILY tizanidine 4 mg capsule 4 mg PO .QHS PRN (Reason: muscle spasticity) miconazole nitrate [Desenex] 2 % powder See Rx Instructions .ROUTE .COMPLEX Rx Instructions: apply topically TO red/irritated SKIN folds TWICE DAILY NEEDED diltiazem HCl 30 mg tablet 30 mg PO Q6H PRN (Reason: elevated heart rate ) Eliquis 5 mg tablet 5 mg PO BID Changed bumetanide 1 mg tablet 1 mg PO DAILY PRN (Reason: Edema) Qty: 1 0RF Rx Instructions: Dose change will Discharge Order = DC NOW: Discharge Order (Routine); Ordered 12/30/24 Ordered By: Shailesh Carrion Referrals: Awais Lewis MD [Primary Care Provider, [facility]] - 4-7 days Patient Instructions: Opioid Safety, Patient Portal & [place] Instructions Activity Restrictions/Additional Instructions: As per discussion continue metoprolol and continue arrangements with electrophysiology office for expedited study after episode of SVT. Hold Bumex for now due to some dehydration on presentation with some worsening of kidney function creatinine today slightly better down to 1.8. Please have your primary doctor reassess your kidney function. Consider Bumex as needed for now for edema unless resumed scheduled by your primary provider or offset press operator apprentice. Discharge Attestations Time Spent in Discharge Care*: greater than 30 min Quality Metrics Clinical Quality Measures [ No reported AMI, CVA or VTE this stay] Coding Level of Care Code 22444 Total time (in minutes) for Discharge: 40 Diagnoses Supraventricular tachycardia I47.10 Paroxysmal atrial fibrillation with rapid ventricular response I48.0 Primary hypertension I10 Hypertension type: primary hypertension Acute heart failure with preserved ejection fraction (HFpEF) I50.31 Heart failure chronicity: acute V-tach I47.20
[2024-12-30 09:18] VITALS: BP 121/68; PULSE 55; RESP 18; TEMP 36.6; O2SAT 96
--- NOTE | 2024-12-30 09:20 | PM.PN ---
Subjective Subjective: The patient is doing okay. He seems to be staining the sinus rhythm/sinus bradycardia. Vitals are stable. Remains afebrile Reviewed the echocardiogram I also had discussions with Dr. Murillo , his computer aided design operator in [place]. Medications: Medication Review Details: Current Medications Acetaminophen (Acetaminophen 325 Mg Tablet) 650 mg PO Q6H PRN PRN Reason: Mild/Mod Pain Or Temp >/= 101 Last Admin: 12/30/24 08:04 Dose: 650 mg Apixaban (Apixaban 5 Mg Tablet) 5 mg PO BID [facility] Last Admin: 12/30/24 08:05 Dose: 5 mg Diltiazem HCl (Diltiazem 30 Mg Tablet) 30 mg PO Q6H PRN PRN Reason: elevated heart rate AMIODARONE HCL/D5W (Amiodarone 900 Mg/500 Ml-D5w) 900 mg in 500 mls @ 0 mls/hr IV .Q0M [facility]; Protocol Last Titration: 12/29/24 13:34 Dose: 0 mg/min, 0 mls/hr Metoprolol Succinate (Metoprolol Succinate Er (24 Hr) 25 Mg Tablet) 25 mg PO DAILY [facility] Last Admin: 12/30/24 09:01 Dose: 25 mg Ondansetron HCl (Ondansetron 2 Mg/Ml Sdv 2 Ml) 4 mg IVP Q8H PRN PRN Reason: vomiting, or N/V if npo Tizanidine HCl (Tizanidine 4 Mg Tablet) 4 mg PO BEDTIME PRN PRN Reason: muscle spasticity Vitals/I&O/Wt Last Vital Signs Temp 97.9 F 12/30/24 09:18 Pulse 55 L 12/30/24 09:18 Resp 18 12/30/24 09:18 BP 121/68 12/30/24 09:18 Pulse Ox 96 12/30/24 09:18 O2 Del Method Room Air 12/29/24 17:32 O2 Flow Rate 2 12/29/24 12:40 12/29/24 12/30/24 12/30/24 22:59 06:59 14:59 Intake Total 480 / 626.096 120 / 120 Balance 480 / 626.096 120 / 120 Weight last 48 hrs Weight 256 lb 2 oz Weight 258 lb Weight 258 lb Physical Exam Narrative: GENERAL: The patient is alert and oriented times three. Not in any acute distress. Obese HEENT: No significant pallor, icterus or lymphadenopathy.Oral cavity: There are no mucous membrane lesions. NECK: Trachea appears to be central. No masses noted. No JVD or thyromegaly appreciated. RESPIRATORY: Chest is symmetrical. No intercostals muscle retraction or any accessory muscle activation. There is no chest wall tenderness. Breath sounds are heard bilaterally. No rales or rhonchi heard. No evidence of any consolidation. BREASTS: Deferred. HEART: The heart sounds are normal. No S3 or S4. No significant murmurs. No pericardial rub ABDOMEN: No vessel pulsations or distention. No tenderness. No organomegaly appreciated. Bowel sounds are normally heard. : Deferred. RECTAL: Deferred. LYMPHATIC: No lymphadenopathy noted in the neck. EXTREMITIES: 1+ edema both lower extremities. No cyanosis. Peripheral pulses are palpable but somewhat weak. MUSCULOSKELETAL: No acute joint deformities or swelling SKIN: There are no significant rashes or ecchymosis NEUROPSYCHIATRIC: The patient is alert and oriented x3. Appears to be in a good mood. No tremors or rigidity noted. Data 12/29/24 08:45 12/30/24 03:33 Other Labs: Laboratory Last Values WBC 8.92 10^3/uL (3.29-11.43) 12/29/24 08:45 RBC 4.98 10^6/uL (3.85-5.65) 12/29/24 08:45 Hgb 14.50 g/dL (11.27-16.99) 12/29/24 08:45 Hct 44.5 % (37-53) 12/29/24 08:45 MCV 89.4 fl (82-101) 12/29/24 08:45 MCH 29.1 pg (27-33) 12/29/24 08:45 MCHC 32.6 g/dL (30-55) 12/29/24 08:45 RDW 14.0 % (12.1-15.1) 12/29/24 08:45 Plt Count 192 10^3/cmm (157-399) 12/29/24 08:45 MPV 11.9 fL (7.4-10.4) H 12/29/24 08:45 Neut % (Auto) 58.4 % 12/29/24 08:45 Lymph % (Auto) 27.4 % 12/29/24 08:45 [place] % (Auto) 11.0 % 12/29/24 08:45 Eos % (Auto) 2.2 % 12/29/24 08:45 Baso % (Auto) 0.7 % 12/29/24 08:45 Neut # (Auto) 5.21 10^3/uL (1.8-7.7) 12/29/24 08:45 Lymph # (Auto) 2.4 10^3/uL (0.8-4.8) 12/29/24 08:45 [place] # (Auto) 1.0 10^3/uL (0.2-0.9) H 12/29/24 08:45 Eos # (Auto) 0.2 10^3/uL (0.0-0.8) 12/29/24 08:45 Baso # (Auto) 0.1 10^3/uL (0.0-0.1) 12/29/24 08:45 Nucleated RBC % (auto) 0 % 12/29/24 08:45 Nucleated RBCs # 0.0 /100WBC 12/29/24 08:45 PT 14.80 SECONDS (12.1-14.9) 12/29/24 08:45 INR 1.08 (0.8-1.2) 12/29/24 08:45 Sodium 142 mmol/L (136-145) 12/30/24 03:33 Potassium 4.5 mmol/L (3.5-5.1) 12/30/24 03:33 Chloride 110 mmol/L (98-107) H 12/30/24 03:33 Carbon Dioxide 19 mmol/L (22-29) L 12/30/24 03:33 Anion Gap 17.5 (5-19) 12/30/24 03:33 BUN 39 mg/dL (8-23) H 12/30/24 03:33 Creatinine 1.8 mg/dL (0.7-1.2) H 12/30/24 03:33 GFR Calculation Not Reportable 12/30/24 03:33 Glucose 102 mg/dL (65-115) 12/30/24 03:33 Calculated Osmolality 304 mOsm/kg (285-295) H 12/30/24 03:33 Calcium 8.8 mg/dL (8.5-10.5) 12/30/24 03:33 Magnesium 2.4 mg/dL (1.7-2.3) H 12/29/24 10:26 Total Bilirubin 0.3 mg/dL (0.15-1.2) 12/30/24 03:33 AST 12 U/L (0-40) 12/30/24 03:33 ALT 9 U/L (0-41) 12/30/24 03:33 Alkaline Phosphatase 71 U/L (40-130) 12/30/24 03:33 Troponin T Baseline 19 ng/L (0-15) H 12/29/24 08:45 Troponin T 120 Minute 17.04 ng/L (0-15) H 12/29/24 10:26 Delta Troponin T -1.96 ABS# (0-10) L 12/29/24 10:26 Troponin T Hi Sens 6Hr 36.62 ng/L (0-15) H 12/29/24 15:43 Troponin T Hi Sens 6Hr Delta 17.62 ng/L (0-12) H* 12/29/24 15:43 NT-Pro-B Natriuret Pep 158 pg/mL (0-125) H 12/29/24 08:45 Total Protein 6.2 g/dL (6.6-8.7) L 12/30/24 03:33 Albumin 3.6 g/dL (3.5-5.2) 12/30/24 03:33 Globulin 2.6 g/dL (1.3-4.6) 12/30/24 03:33 Other data: Echocardiogram from 12/29/2024 Normal LV size ejection fraction of 58%.no regional wall motion abnormalities. Mild left ventricular hypertrophy. Normal cardiac chamber sizes. There is no pericardial effusion. There are no intracardiac masses. Minimally thickened aortic and mitral valves. No similar previous studies are available for comparison A&P Assessment and plan 1. Supraventricular tachycardia: Patient appears to have atrial flutter/ long RP tachycardia. Currently he is back into sinus bradycardia. I may hold off on amiodarone for the time being Dr. Murillo agreed that -it would be better for the patient not to have any antiarrhythmic drugs at this time. He is planning to do an EP study. He also mentioned that be applying to expedite his appointment. 2. Paroxysmal atrial fibrillation with rapid ventricular response: Patient had RF ablation in the past. He is on long-term oral anticoagulation. This may be continued. He is planning to have repeat ablation. May continue the metoprolol. 3. Primary hypertension: Currently normotensive. May continue current medication. 4. Acute heart failure with preserved ejection fraction (HFpEF): Possibly due to the tachyarrhythmia. Patient may be carefully treated with IV diuretics. BNP from yesterday was 158 5. V-tach: Patient has a history of ventricular tachycardia and ablation. Currently does not appear to have VT. Plan: The echocardiogram was reviewed. The LV ejection fraction was in the normal range. If the patient continues to remain stable, may be discharged home on the metoprolol along with her medications. Patient will be contacting the computer aided design operator office in [place] regarding his appointment. Dr. Murillo is planning to expedite the appointment. PDMP PDMP Reviewed: Not Reviewed Attestations Medical Necessity Statement*: Possible discharge home today Coding Level of Care Code 09912 Diagnoses Supraventricular tachycardia I47.10 Paroxysmal atrial fibrillation with rapid ventricular response I48.0 Primary hypertension I10 Hypertension type: primary hypertension Acute heart failure with preserved ejection fraction (HFpEF) I50.31 Heart failure chronicity: acute V-tach I47.20
--- NOTE | 2024-12-30 12:51 | PC.SOCIAL ---
*IMM* Important message from medicare gave to patient, initialed, dated and placed in chart.
== END 2024-12-30 10:00 | disposition home or self-care (01) ==
LOC: ER 11:10 → ER IP 12:13 → CSU 13:54
PROVIDERS: Internal Medicine Cardiovascular Disease; Admitting Provider Internal Medicine; Emergency Provider Emergency Medicine; PCP Family Medicine; Visit Provider Internal Medicine
DX: I48.0 Paroxysmal atrial fibrillation (principal); I47.10 Supraventricular tachycardia, unspecified; I50.31 Acute diastolic (congestive) heart failure; I11.0 Hypertensive heart disease with heart failure; Z79.01 Long term (current) use of anticoagulants; K57.30 Diverticulosis of large intestine without perforation or abscess without bleeding; G47.33 Obstructive sleep apnea (adult) (pediatric); Z99.89 Dependence on other enabling machines and devices; K21.9 Gastro-esophageal reflux disease without esophagitis; Z82.49 Family history of ischemic heart disease and other diseases of the circulatory system
CPT/HCPCS: 36415; 71045; 80053; 83735; 83880; 84484; 85025; 85610; 93005; 93308; 94799; 96365; 96375; 99291; A4222; G0378; J0282; J2270; J3490; J7030; J9999

== ENCOUNTER → 2025-01-26 13:09 | Outpatient (BNVA) | payer MEDICARE, SELFPAY | PROVIDERS: PCP Family Medicine; Visit Provider Internal Medicine Cardiovascular Disease | DX: Z79.899 Other long term (current) drug therapy (principal); Z95.0 Presence of cardiac pacemaker; I45.19 Other right bundle-branch block; R94.31 Abnormal electrocardiogram [ECG] [EKG] | CPT/HCPCS: 93005 ==

== ENCOUNTER 2025-02-03 13:10 | Emergency (ER) | payer MEDICARE, SELFPAY ==
--- NOTE | 2025-02-03 | XRR_ITS ---
PROCEDURE INFORMATION: Exam: XR Chest Exam date and time: 02/03/2025 2:04 PM Age: 74 years old Clinical indication: Other: Syncope TECHNIQUE: Imaging protocol: Radiologic exam of the chest. Views: 1 view. COMPARISON: CR XR chest 1V portable [id number] 12/29/2024 8:57 AM FINDINGS: Tubes, catheters and devices: Dual lead cardiac pacer. Lungs: Unremarkable. No consolidation. Pleural spaces: Unremarkable. No pleural effusion. No pneumothorax. Heart/Mediastinum: Unremarkable. No cardiomegaly. Bones/joints: Unremarkable. XR/XR chest 1V portable [id number] IMPRESSION: No acute findings.
[2025-02-03 13:13] VITALS: BP 125/77; PULSE 67; RESP 18; TEMP 36.7; O2SAT 99
--- NOTE | 2025-02-03 13:38 | ECG_ITS ---
[email or web address] Test Date: 2025-02-03 Pat Name: Jose Angel Ceja Department: Room: Gender: Male Wrister: : 1950 Requested By: Tahmina Amanda Order Number: [id number] Reading MD: ALYSSIA GOLDMAN Measurements Intervals [place] Rate: 61 P: 81 WI: 243 QRS: -42 QRSD: 182 T: 33 QT: 480 QTc: 484 Interpretive Statements ELECTRONIC ATRIAL PACEMAKER LEFT AXIS DEVIATION [QRS AXIS < -30] RIGHT BUNDLE BRANCH BLOCK [120+ ms QRS DURATION, UPRIGHT V1, 40+ ms S IN I/aVL/V4/V5/V6] Compared to ECG 01/26/2025 13:13:30 No significant changes Electronically Signed On 02-05-2025 23:22:56 CDT by ALYSSIA GOLDMAN [id number]
[2025-02-03 14:23] VITALS: BP 120/76; BP 128/77; BP 129/75; PULSE 61; PULSE 62
--- NOTE | 2025-02-03 14:25 | CT_ITS ---
WS: [id number] CT HEAD TECHNIQUE: Noncontrast CT of the head obtained from the skullbase to the vertex. CLINICAL INFORMATION: dizziness COMPARISON: None. DLP: 1171.[address] scans at [facility] use at least one of these dose optimization techniques: automated exposure control; mA and/or kV adjustment per patient size (includes targeted exams where dose is matched to clinical indication); or iterative reconstruction. FINDINGS: No evidence of intracranial hemorrhage or mass effect. Ventricular system and basal cisterns are patent. Mild small vessel changes with mild parenchymal volume loss. No extra-axial fluid collections. No evidence of mass or mass effect. Vascular calcification. Small lacunar infarct RIGHT caudate. Paranasal sinuses and mastoid air cells are well aerated. .Normal visualized soft tissues. CT/CT head wo con* [id number] IMPRESSION: 1. No evidence of intracranial hemorrhage or mass effect. 2. Mild small vessel changes with mild parenchymal volume loss. 3. Small lacunar infarct RIGHT thalamus age-indeterminate. This may be subacut e to chronic. This can be followed up with MRI on an elective basis if indicate d. 4. Vascular calcification. 5. No other acute findings.
[2025-02-03 14:29] VITALS: BP 167/95; PULSE 65; RESP 17; O2SAT 95
[2025-02-03 14:35] LABS: Hematocrit 43.9 % (37-53); Hemoglobin 14.30 g/dL (11.27-16.99); Mean Corpuscular HGB Conc 32.6 g/dL (30-55); Mean Corpuscular Hemoglobin 29.7 pg (27-33); Mean Corpuscular Volume 91.1 fl (82-101); Nucleated Red Blood Cells % 0 %; Platelet Count 175 10^3/cmm (157-399); Red Blood Count 4.82 10^6/uL (3.85-5.65); White Blood Count 10.32 10^3/uL (3.29-11.43)
--- NOTE | 2025-02-03 14:39 | W.ED.DIZZY ---
HPI - Dizziness General: Chief Complaint: Dizziness Stated Complaint: dizzy Time Seen by Provider: 02/03/25 14:04 History of Present Illness: HPI Narrative: Selected Entries 02/03/25 13:13 ED Triage Comment patient reports he has had dizziness since thursday w [place], he f ell due to severe dizziness. patient reports he has ex stensive cardiac h x. patient had ICD placed into left upper chest 2.5 we eks ago. patient h as hx of afib, num erous ablasions. p atient is a& ox4 a nd reports continu ed dizziness and n umerous falls. jeb crawford takes eliquis at home . negativ e for stroke scale at this time. Patient is a 74-year-old gentleman, history of A-fib, HFpEF, AICD PM due to VT, that presented to the emergency room due to dizziness, and multiple falls. Patient is status post cardiac ablation [address] Murillo at [facility]. He presents today with dizziness since Thursday. He had severe dizziness when walking in the park, and fell. He has had numerous falls since that time. Denies any injury. Denies any shocking of his pacemaker. Patient denies: Dysphagia, dysarthria, word finding, sensation changes, unilateral weakness, bilateral weakness Patient admits to: Gait instability, vertigo, dizziness, lack of coordination, plugged ears Associated symptoms: Denies chest pain, chills, headache(s), nausea, nasal congestion, palpitations or vomiting Associated neuro symptoms: Deny confusion or numbness in extremities Related Data Home Medications ?Medication ?Instructions ?Recorded ?Confirmed cetirizine 10 mg capsule 10 mg PO DAILY PRN allergies 10/24/19 02/03/25 glucosamine HCl 1,500 mg tablet 1,500 mg PO BID 10/24/19 02/03/25 multivitamin 1 tab PO DAILY 10/24/19 02/03/25 fluticasone propionate 50 1 spray intranasal DAILY PRN 09/26/21 02/03/25 mcg/actuation nasal allergies spray,suspension magnesium oxide 400 mg (241.3 mg 400 mg PO DAILY 12/10/21 02/03/25 magnesium) tablet (MagOx) spironolactone 25 mg tablet 25 mg PO DAILY 09/22/24 02/03/25 amlodipine 10 mg tablet 10 mg PO DAILY 12/13/24 02/03/25 ammonium lactate 12 % topical cream 1 applic topical DAILY PRN Dry Skin 12/13/24 02/03/25 empagliflozin 10 mg tablet 10 mg PO DAILY 12/13/24 02/03/25 (Jardiance) losartan 25 mg tablet 25 mg PO DAILY 12/13/24 02/03/25 metoprolol succinate 25 mg 25 mg PO DAILY 12/13/24 02/03/25 tablet,extended release 24 hr potassium chloride 20 mEq 20 meq PO DAILY 12/13/24 02/03/25 tablet,extended release(part/cryst) tizanidine 4 mg capsule 4 mg PO .QHS PRN muscle spasticity 12/13/24 02/03/25 apixaban 5 mg tablet (Eliquis) 5 mg PO BID 12/29/24 02/03/25 diltiazem HCl 30 mg tablet 30 mg PO Q6H PRN elevated heart 12/29/24 02/03/25 rate miconazole nitrate 2 % topical See Rx Instructions .Route .COMPLEX 12/29/24 02/03/25 powder (Desenex) flecainide 50 mg tablet 50 mg PO Q12H 02/03/25 02/03/25 Previous Rx's ?Medication ?Instructions ?Recorded bumetanide 1 mg tablet 1 mg PO DAILY PRN Edema #1 tab 12/30/24 DME: Walker #1 ea 02/03/25 atorvastatin 40 mg tablet (Lipitor) 40 mg PO QPM #30 tabs 02/03/25 meclizine 25 mg tablet 25 mg PO TID PRN dizziness #30 tabs 02/03/25 Allergies Allergy/AdvReac Type Severity Reaction Status Date / Time codeine Allergy Unknown Unknown Verified 02/03/25 12:28 hydrocodone (From Vicodin) Allergy Unknown Unknown Verified 02/03/25 12:28 lisinopril Allergy Unknown Unknown Verified 02/03/25 12:28 PAWAN Inhibitors Allergy Unknown Verified 02/03/25 12:28 Review of Systems General: Reports: 10 or more systems reviewed and unremarkable except in HPI and below Const: Denies: fever(s) or chills ENMT: Denies: throat pain, ear or mastoid pain, nasal congestion or sinus pain Card: Denies: chest pain, palpitations or swelling of feet/ankles Resp: Denies: dyspnea or productive cough GI: Denies: abdominal pain, nausea, vomiting or diarrhea : Denies: flank pain Musc: Denies: back pain or extremity swelling Skin/Breast: Denies: rash Neuro: Reports: lack of coordination, difficulty walking, dizziness and vertigo; Denies: headache(s), numbness in extremities, weakness in extremities, sensory changes, confusion, Slurred speech present, difficulty communicating thoughts, seizure-like activity or involuntary movements Psych: Denies: anxiety or depression PFSH ED PFSH: Medical History (Updated 02/03/25 @ 15:51 by TAMICA Alcantara) Chronic heart failure with preserved ejection fraction (HFpEF) V-tach History of prostate cancer Diverticulosis with hx of diverticulitis Chronic sinusitis with periodic acute infections SRINATH on CPAP compliant Bilateral renal stones Multi stone former requiring multiple procedures over years. Residual small stones bilaterally with rare symptoms on follow-up Hx of urethral stricture Status post extracorporeal shock wave therapy Primary hypertension Afib hx of ablation GERD (gastroesophageal reflux disease) Acquired bladder neck obstruction Surgical History History of radiofrequency ablation procedure for cardiac arrhythmia Hx of radical retropubic prostatectomy Family History Father , at age 90 Stroke Mother , at age 86 Parkinson disease Other CAD (coronary artery disease) Cancer Hypertension Social History Smoking and tobacco/nicotine status: former use of tobacco/nicotine Alcohol intake: current Alcohol intake frequency: few times a month Substance/Drug Use: never Lives independently: No Household members: spouse Marital status: Current occupational status: retired Physical Exam Const: COMMON NORMALS: no acute distress, average body habitus, patient oriented x3, no limitations, healthy appearing and alert ORIENTATION/CONSCIOUSNESS: Yes oriented to person and Yes oriented to time HENMT: COMMON NORMALS: Normal external nose present FACE & SINUS: normal facial exam and sinuses nontender NOSE: Normal external nose present and Normal nares present TYMPANIC MEMBRANE: TM abnormal TM laterality: bilateral obstructed by cerumen and unable to visualize TM (Right completely obscured, left partially obscured other than 11-12:00) MOUTH: Normal oral and palatal mucosa present, lip normal and tongue normal THROAT: posterior oropharynx normal Eye: COMMON NORMALS: Equal, round and reactive pupils present, EOMs intact bilaterally, conjunctivae normal and no scleral icterus CONJUNCTIVA: Yes conjunctivae normal PUPIL: Yes Equal, round and reactive pupils present Neck/C-Spine: COMMON NORMALS: full ROM, no lymphadenopathy, supple and no meningeal signs Lymph: LYMPHATIC: no lymphadenopathy noted Chest: COMMONS NORMALS: normal inspection of the chest and normal palpation of entire chest wall Resp: COMMON NORMALS: normal respiratory effort, No retractions and clear to auscultation bilaterally AUSCULTATION: clear to auscultation bilaterally Cardio: COMMON NORMALS: regular rate and regular rhythm RATE: regular rate RHYTHM: regular rhythm GI: COMMON NORMALS: Normal to inspection, nondistended, normoactive bowel sounds present, Soft to palpation, non-tender and No hepatosplenomegaly present PALPATION: Yes Soft to palpation and Yes No hepatosplenomegaly present : COMMON NORMALS: Yes no CVA tenderness BLADDER/KIDNEY EXAM: Yes no CVA tenderness Back/Pelvis: COMMON NORMALS: no CVA tenderness Neuro: COMMON NORMALS: patient oriented x3, CN's II-XII intact bilaterally, moves all extremities, no focal motor deficits, no sensory deficits noted and deep tendon reflexes 2+ bilaterally SENSORIUM/ORIENTATION: Yes alert, Yes oriented to person and Yes oriented to time MENINGEAL SIGNS: Yes no meningeal signs CRANIAL NERVES: Yes vestibular testing Vestibular testing: Yes Nystagmus not present COORDINATION/BALANCE: exonwi-[id number] test normal, xqun-po-pahw test normal and No tandem gait normal SPEECH: speech normal GAIT: Yes Antalgic gait present and Yes Assistive device used MOTOR EXAM: 5/5 motor strength present throughout and Pronator motor function not present COORDINATION: rgmhni-wy-zxhe test normal, xjzq-cl-cszp test normal and tandem gait abnormal Psych: COMMON NORMALS: mental status grossly normal, Normal thought process present and cooperative THOUGHT PROCESS: Normal thought process present Skin: COMMON NORMALS: no rashes or lesions noted, no wounds and turgor normal GENERAL SKIN EXAM: no rashes or lesions noted and turgor normal Course Vital Signs: Vital signs: Vital Signs Temperature 98.0 F 02/03/25 13:13 Pulse Rate 62 10/10/25 16:21 Respiratory Rate 17 02/03/25 14:29 Blood Pressure 128/100 02/03/25 16:21 Pulse Oximetry 92 02/03/25 16:21 Oxygen Delivery Me thod Room Air 02/03/25 14:29 MDM - Dizziness Medical Decision Making Pacemaker interrogation indicates no V-fib, V. tach, or A-fib. There is no evidence of irregularity. Orthostatics are normal and no evidence of hypovolemia Unfortunately, his CT of his head is abnormal for subacute versus chronic lacunar right thalamic CVA. I do believe this is subacute, given history of Thursday. There is no need for acute stroke workup, nor can I produce this in the emergency room workup. I have explained the limitations to the patient/. I have typically numbered out everything that needs to occur with her primary care physician, and given them a referral to neurology. 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 I have placed him on a baby aspirin, coated, with the knowledge that he has A-fib, on flecainide, and Eliquis, and concern for bleeding. If his ultrasound of his carotids indicate carotid stenosis, it may be important to switch to clopidogrel/Plavix, which I have explained in layman's terms. Patient's primary care physician is well versed in the use as well, and can switch him at that time. Meclizine was given for his dizziness, however given the fact this is most likely CVA, this may or may not work. I have discussed this with patient and his . They will attempt the meclizine that was sent to the pharmacy, and discontinue this if it does not work. As well, given stroke measures, even know we are out of the window, and his cholesterol was checked 12/16/2024, it is important to place him on an antilipid medication. I have sent atorvastatin to the pharmacy. I have discussed with patient/ that stroke is still the fourth leading cause of in [place], and prevention, reduction of stroke, does not lead to no stroke, and this is still something that can happen with reducing your risk. Patient/ understand. Medical Records I reviewed the patient's medical records. Lab Data I reviewed the patient's lab results. 02/03/25 14:18 02/03/25 14:18 Radiology Impressions Chest X-Ray 02/03/25 00:00 IMPRESSION: No acute findings. Head CT 02/03/25 14:25 IMPRESSION: 1. No evidence of intracranial hemorrhage or mass effect. 2. Mild small vessel changes with mild parenchymal volume loss. 3. Small lacunar infarct RIGHT thalamus age-indeterminate. This may be subacute to chronic. This can be followed up with MRI on an elective basis if indicated. 4. Vascular calcification. 5. No other acute findings. Laboratory Results WBC 10.32 10^3/uL (3.29-11.43) 02/03/25 14:18 RBC 4.82 10^6/uL (3.85-5.65) 02/03/25 14:18 Hgb 14.30 g/dL (11.27-16.99) 02/03/25 14:18 Hct 43.9 % (37-53) 02/03/25 14:18 MCV 91.1 fl (82-101) 02/03/25 14:18 MCH 29.7 pg (27-33) 02/03/25 14:18 MCHC 32.6 g/dL (30-55) 02/03/25 14:18 RDW 14.0 % (12.1-15.1) 02/03/25 14:18 Plt Count 175 10^3/cmm (157-399) 02/03/25 14:18 MPV 11.6 fL (7.4-10.4) H 02/03/25 14:18 Neut % (Auto) 66.9 % 02/03/25 14:18 Lymph % (Auto) 20.6 % 02/03/25 14:18 [place] % (Auto) 9.0 % 02/03/25 14:18 Eos % (Auto) 2.5 % 02/03/25 14:18 Baso % (Auto) 0.6 % 02/03/25 14:18 Neut # (Auto) 6.90 10^3/uL (1.8-7.7) 02/03/25 14:18 Lymph # (Auto) 2.1 10^3/uL (0.8-4.8) 02/03/25 14:18 [place] # (Auto) 0.9 10^3/uL (0.2-0.9) 02/03/25 14:18 Eos # (Auto) 0.3 10^3/uL (0.0-0.8) 02/03/25 14:18 Baso # (Auto) 0.1 10^3/uL (0.0-0.1) 02/03/25 14:18 Nucleated RBC % (auto) 0 % 02/03/25 14:18 Nucleated RBCs # 0.0 /100WBC 02/03/25 14:18 Sodium 139 mmol/L (136-145) 02/03/25 14:18 Potassium 4.8 mmol/L (3.5-5.1) 02/03/25 14:18 Chloride 104 mmol/L (98-107) 02/03/25 14:18 Carbon Dioxide 22 mmol/L (22-29) 02/03/25 14:18 Anion Gap 17.8 (5-19) 02/03/25 14:18 BUN 34 mg/dL (8-23) H 02/03/25 14:18 Creatinine 1.9 mg/dL (0.7-1.2) H 02/03/25 14:18 GFR Calculation Not Reportable 02/03/25 14:18 Glucose 104 mg/dL (65-115) 02/03/25 14:18 Calculated Osmolality 296 mOsm/kg (285-295) H 02/03/25 14:18 Calcium 9.5 mg/dL (8.5-10.5) 02/03/25 14:18 Total Bilirubin 0.6 mg/dL (0.15-1.2) 02/03/25 14:18 AST 14 U/L (0-40) 02/03/25 14:18 ALT 12 U/L (0-41) 02/03/25 14:18 Alkaline Phosphatase 103 U/L (40-130) 02/03/25 14:18 Troponin T Baseline 14 ng/L (0-15) 02/03/25 14:18 NT-Pro-B Natriuret Pep 433 pg/mL (0-125) H 02/03/25 14:18 Total Protein 7.0 g/dL (6.6-8.7) 02/03/25 14:18 Albumin 4.7 g/dL (3.5-5.2) 02/03/25 14:18 Globulin 2.3 g/dL (1.3-4.6) 02/03/25 14:18 Urine Color Yellow (Yellow) 02/03/25 14:53 Urine Appearance Clear (CLEAR) 02/03/25 14:53 Urine pH 5.0 (5-7) 02/03/25 14:53 Ur Specific [place] 1.011 (1.005-1.030) 02/03/25 14:53 Urine Protein Negative (Negative) 02/03/25 14:53 Urine Glucose (UA) 1+ (Normal) H 02/03/25 14:53 Urine Ketones Negative (Negative) 02/03/25 14:53 Urine Blood Negative (Negative) 02/03/25 14:53 Urine Nitrate Negative (Negative) 02/03/25 14:53 Urine Bilirubin Negative (Negative) 02/03/25 14:53 Urine Urobilinogen 0.2 mg/dL (Negative) 02/03/25 14:53 Ur Leukocyte Esterase Negative (Negative) 02/03/25 14:53 Amorphous Sediment Not Reportable 02/03/25 14:53 All radiology interpretation(s) finalized by discharge Discharge Plan Discharge Patient Disposition: Home Clinical Impression: Cerebrovascular accident (CVA) of right thalamus Condition: Stable Prescriptions: New (DME) DME: Walker Unit See Rx Instructions .Route Qty: 1 0RF Rx Instructions: As directed meclizine 25 mg tablet 25 mg PO TID PRN (Reason: dizziness) Qty: 30 0RF Rx Instructions: 1 tablet up to 3 times a day as needed for dizziness atorvastatin [Lipitor] 40 mg tablet 40 mg PO QPM Qty: 30 0RF No Action cetirizine 10 mg capsule 10 mg PO DAILY PRN (Reason: allergies) glucosamine HCl 1,500 mg tablet 1,500 mg PO BID Rx Instructions: administer with a meal multivitamin Tablet 1 tab PO DAILY fluticasone propionate 50 mcg/actuation spray,suspension 1 spray intranasal DAILY PRN (Reason: allergies) Rx Instructions: administer into each nostril magnesium oxide [MagOx] 400 mg (241.3 mg magnesium) tablet 400 mg PO DAILY spironolactone 25 mg tablet 25 mg PO DAILY losartan 25 mg tablet 25 mg PO DAILY Jardiance 10 mg tablet 10 mg PO DAILY potassium chloride 20 mEq tablet,ER particles/crystals 20 meq PO DAILY amlodipine 10 mg tablet 10 mg PO DAILY ammonium lactate 12 % cream 1 applic topical DAILY PRN (Reason: Dry Skin) metoprolol succinate 25 mg tablet extended release 24 hr 25 mg PO DAILY tizanidine 4 mg capsule 4 mg PO .QHS PRN (Reason: muscle spasticity) miconazole nitrate [Desenex] 2 % powder See Rx Instructions .ROUTE .COMPLEX Rx Instructions: apply topically TO red/irritated SKIN folds TWICE DAILY NEEDED diltiazem HCl 30 mg tablet 30 mg PO Q6H PRN (Reason: elevated heart rate ) Eliquis 5 mg tablet 5 mg PO BID bumetanide 1 mg tablet 1 mg PO DAILY PRN (Reason: Edema) Qty: 1 0RF Rx Instructions: Dose change will flecainide 50 mg tablet 50 mg PO Q12H Discharge Orders: Discharge ED (Routine); Ordered 02/03/25 Ordered By: Tahmina Amanda Referrals: Kandice Lopez MD [Physician, Neurology] Awais Lewis MD [Primary Care Provider, Family Practice] Discharge Diet: Usual diet Discharge Activity: Resume usual activity and Use walker/crutches as instructed Patient Instructions: Self Care Measures After a Stroke (ED), Stroke Prevention (ED), Patient Portal & [place] Instructions Activity Restrictions/Additional Instructions: - Call Dr. Lewis for follow-up: You will need 1. ultrasound of neck (given your chronic kidney disease, you want to avoid IV contrast), 2. MRI without contrast with diffusion weighted images, 3. Echocardiogram with a bubble study (which is different from previous echocardiograms), 4. Physical therapy/Occupational Therapy outpatient for assessment -I will make a referral with Dr. Lopez, however Dr. Lewis will most likely need to order these in the interim. Feel free to call Dr. Lopez's office on Thursday to confirm an appointment. -You will need to take a baby aspirin daily (make sure this is coated) until you find out about your ultrasound of your neck (in case you need to be switched to clopidogrel/Plavix) - Use your walker that you have at home from your knee surgery for gait stability. -As well, clean out your ears -Return to ED if you do have worsening dizziness -I will send meclizine and atorvastatin to the pharmacy which may help. If you do not notice a difference, you do not need to keep taking this meclizine. Print Language: [place] Coding Level of Care Code ED Packaging Supervisor for Liza Prabhakar
[2025-02-03 14:53] LABS: Troponin(5th) Baseline 14 ng/L (0-15)
[2025-02-03 15:00] LABS: Add Urine Microscopic? NO
[2025-02-03 15:02] LABS: Glucose Urine UA 1+ (Normal); Nitrate Urine Negative (Negative); Specific Gravity, Urine 1.011 (1.005-1.030)
[2025-02-03 15:04] LABS: Charge for UA Resulting for Rev
[2025-02-03 15:10] LABS: Alanine Aminotransferase 12 U/L (0-41); Albumin Level 4.7 g/dL (3.5-5.2); Alkaline Phosphatase 103 U/L (40-130); Anion Gap 17.8 (5-19); Aspartate Amino Transferase 14 U/L (0-40); Blood Urea Nitrogen 34 mg/dL (8-23); Calcium 9.5 mg/dL (8.5-10.5); Carbon Dioxide 22 mmol/L (22-29); Chloride 104 mmol/L (98-107); Creatinine Clr Calc Pharmacy 46.4057; Globulin 2.3 g/dL (1.3-4.6); Glucose 104 mg/dL (65-115); NT Pro B Type Natriuretic Pept 433 pg/mL (0-125); Osmolality Calculated 296 mOsm/kg (285-295); Potassium 4.8 mmol/L (3.5-5.1); Sodium 139 mmol/L (136-145); Total Protein 7.0 g/dL (6.6-8.7)
--- NOTE | 2025-02-03 15:48 | ECG_ITS ---
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: : 1950 Requested By: Tahmina Amanda Order Number: [id number] Mitchel MD: ALYSSIA GOLDMAN Measurements Intervals [place] Rate: 75 P: 110 MO: 255 QRS: -36 QRSD: 196 T: 11 QT: 484 QTc: 542 Interpretive Statements ELECTRONIC ATRIAL PACEMAKER LEFT AXIS DEVIATION [QRS AXIS < -30] RIGHT BUNDLE BRANCH BLOCK [120+ ms QRS DURATION, UPRIGHT V1, 40+ ms S IN I/aVL/V4/V5/V6] Compared to ECG 02/03/2025 13:18:20 No significant changes Electronically Signed On 02-05-2025 23:29:44 CDT by ALYSSIA GOLDMAN [email or web address]
[2025-02-03 16:21] VITALS: BP 128/100; PULSE 62; O2SAT 92
[2025-02-03 16:43] LABS: Troponin 5 2HR 14.37 ng/L (0-15); Troponin 5 2HR Delta 0.37 ABS# (0-10)
== END 2025-02-03 16:26 | disposition home or self-care (01) ==
PROVIDERS: Emergency Provider Physician Assistant; PCP Family Medicine
DX: I63.89 Other cerebral infarction (principal); Z79.01 Long term (current) use of anticoagulants; Z87.891 Personal history of nicotine dependence; Z85.46 Personal history of malignant neoplasm of prostate; I10 Essential (primary) hypertension
CPT/HCPCS: 36415; 70450; 71045; 80053; 81003; 83880; 84484; 85025; 93005; 99285; J9999

== ENCOUNTER 2025-02-15 14:16 | Outpatient (CLI) | payer MEDICARE, SELFPAY ==
--- NOTE | 2025-02-15 14:30 | USCV_ITS ---
Jose Angel Ceja Age: 74 Gender: M : 1950 Exam Date: 02/15/2025 14:23 Ordering Phys: Awais Lewis MD Technologist: ASHA Exam Location: [facility] [place] Indication: tia Risk Factors: Previous Vascular Surgery: Right Brachial BP: / Left Brachial BP: / Right Left Velocity (cm/s) Spectral Plaque Velocity (cm/s) Spectral Plaque Syst/Diast Broadening Syst/Diast Broadening 51.70/ 11.40 Prox CCA 75.30 / 13.90 56.50/ 14.80 Mid CCA 67.90 / 15.00 56.40/ 16.60 Distal CCA 58.10 / 14.90 28.80/ 9.30 Prox ICA 64.60 / 21.20 32.60/ 10.50 Mid ICA 49.40 / 15.40 38.20/ 14.60 Distal ICA 115.10/ 31.90 47.40 ECA 42.10 0.70 ICA/CCA 1.10 Antegrade Vertebral Antegrade 18.60/ 4.50 cm/s 33.60/ 13.70 cm/s Tri Subclavian Tri 47.10 83.70 CONCLUSIONS Right ICA stenosis <50%. Left ICA stenosis <50%. Intimal thickening in the common carotid arteries and internal carotid arteries bilaterally. Normal antegrade Doppler flow noted in the right vertebral artery. Normal antegrade Doppler flow noted in the left vertebral artery. Ramesh Romero MD (Electronically Signed) Final Date: 15 February 2025 15:44 S
== END 2025-02-15 14:17 | disposition home or self-care (01) ==
LOC: RAD 14:17
PROVIDERS: PCP Family Medicine; Visit Provider Family Medicine
DX: G45.9 Transient cerebral ischemic attack, unspecified (principal)
CPT/HCPCS: 93880

== ENCOUNTER 2025-02-16 14:28 | Outpatient (CLI) | payer MEDICARE, SELFPAY ==
[2025-02-16 16:14] LABS: Blood Urea Nitrogen 46 mg/dL (8-23); Calcium 9.4 mg/dL (8.5-10.5); Carbon Dioxide 19 mmol/L (22-29); Chloride 103 mmol/L (98-107); Glucose 105 mg/dL (65-115); Osmolality Calculated 292 mOsm/kg (285-295); Sodium 135 mmol/L (136-145)
[2025-02-16 16:36] LABS: Anion Gap 18.3 (5-19); Potassium 5.3 mmol/L (3.5-5.1)
== END 2025-02-16 14:29 | disposition home or self-care (01) ==
PROVIDERS: PCP Family Medicine; Visit Provider Family Medicine
DX: I48.91 Unspecified atrial fibrillation (principal)
CPT/HCPCS: 36415; 80048

== ENCOUNTER 2025-03-02 09:50 | Outpatient (CLI) | payer MEDICARE, SELFPAY ==
[2025-03-02 10:45] LABS: Blood Urea Nitrogen 45 mg/dL (8-23); Calcium 9.5 mg/dL (8.5-10.5); Carbon Dioxide 15 mmol/L (22-29); Chloride 108 mmol/L (98-107); Glucose 90 mg/dL (65-115); Osmolality Calculated 293 mOsm/kg (285-295); Sodium 136 mmol/L (136-145)
[2025-03-02 10:46] LABS: Anion Gap 18.1 (5-19); Potassium 5.1 mmol/L (3.5-5.1)
== END 2025-03-02 09:51 | disposition home or self-care (01) ==
PROVIDERS: PCP Family Medicine; Visit Provider Family Medicine
DX: N17.9 Acute kidney failure, unspecified (principal); N18.9 Chronic kidney disease, unspecified
CPT/HCPCS: 36415; 80048

== ENCOUNTER → 2025-04-04 14:10 | Outpatient (BNVA) | payer MEDICARE, SELFPAY | PROVIDERS: PCP Family Medicine; Visit Provider Nurse Practitioner Family | DX: L30.4 Erythema intertrigo (principal); L72.0 Epidermal cyst; D23.72 Other benign neoplasm of skin of left lower limb, including hip; L82.1 Other seborrheic keratosis; L57.8 Other skin changes due to chronic exposure to nonionizing radiation; Z08 Encounter for follow-up examination after completed treatment for malignant neoplasm; Z86.006 Personal history of melanoma in-situ | CPT/HCPCS: 99213 ==